=== PATIENT | male | born 1980 | race Caucasian/White ===

== ENCOUNTER → 2016-09-03 | Outpatient (CLI) | payer OTHER ==
[~2016-09-03] MED LIST: BUSP15TA70 PO; CHLO1TAB15 PO; GABA1CAP5 PO; METH10CO PO; VENL25TA2 PO
[2016-09-03 16:44] LABS: SODIUM 139 mmol/L (136-145)
[2016-09-03 16:49] LABS: BLOOD UREA NITROGEN 11 mg/dl (7-18); BUN/CREATININE RATIO 10.3 (10-20); CALCIUM 9.3 mg/dl (8.5-10.1); CARBON DIOXIDE 23 mmol/L (21-32); CHLORIDE 102 mmol/L (98-107); GLUCOSE 100 mg/dl (70-99)
== END | disposition home or self-care (01) ==
LOC: C.LABBFT 11:59
PROVIDERS: ATTEND Physician Assistant Medical
DX: R82.90 Unspecified abnormal findings in urine (principal)

== ENCOUNTER → 2016-09-06 | Outpatient (CLI) | payer OTHER ==
[2016-09-06 17:32] LABS: MANUAL MICROSCOPIC REQUIRED? NO; REVIEW REQ? NO; URINE APPEARANCE CLEAR (CLEAR); URINE COLOR DK YELLOW; URINE NITRITE NEG (NEG); URINE SPECIFIC GRAVITY 1.032 (1.000-1.030); UROBILINOGEN NEG (NEG); ZZUR CULT IF INDIC CLEAN CATCH NO
[2016-09-06 17:37] LABS: URINE BILIRUBIN NEG (NEG)
== END | disposition home or self-care (01) ==
LOC: C.LABBFT 11:34
PROVIDERS: ATTEND Physician Assistant Medical
DX: R82.90 Unspecified abnormal findings in urine (principal)

== ENCOUNTER → 2017-02-01 | Outpatient (CLI) | payer OTHER | END | disposition home or self-care (01) | LOC: C.PATHSPEC 17:12 | PROVIDERS: ATTEND Urology | DX: Z30.2 Encounter for sterilization (principal) ==

== ENCOUNTER 2024-03-02 00:29 | Inpatient (IN) ==
[2024-03-02 01:15] LABS: Appearance Urine Clear (Clear); Bacteria Urine Automated None Seen (None Seen); Bilirubin Urine Negative (Negative); Blood Urine Trace (Negative); Cast Urine Automated 0-2 /lpf (0-2); Color Urine Yellow; Epithelial Cell Urine Auto 0-2 /hpf (0-2); Glucose Urine UA Negative (Negative); Ketones Urine Negative (Negative); Leukocyte Esterase Urine Negative (Negative); Nitrite Urine Negative (Negative); Protein Urine Negative (Negative); RBC Urine Automated 0-2 /hpf (0-2); Specific Gravity Urine 1.007 (1.000-1.030); Urobilinogen Urine Negative (Negative); WBC Urine Automated 0-5 /hpf (0-5)
[2024-03-02 01:19] LABS: Basophils # (auto) 0.03 K/uL (0.00-0.20); Basophils % (auto) 0.3 %; Eosinophils # (auto) 0.02 K/uL (0.00-0.50); Eosinophils % (auto) 0.2 %; Hematocrit (blood only) 40.7 % (42.0-52.0); Hemoglobin 14.1 g/dl (14.0-18.0); Immature Granulocytes # (auto) 0.02 K/uL (0.01-0.20); Immature Granulocytes % (auto) 0.2 %; Lymphocytes # (auto) 1.54 K/uL (1.20-3.40); Lymphocytes % (auto) 16.4 %; Mean Corpuscular Hgb Conc 34.6 g/dL (32.0-36.0); Mean Corpuscular Volume 92.3 fL (80.0-100.0); Mean Platelet Volume 9.7 fL (9.4-12.4); Monocytes # (auto) 0.71 K/uL (0.11-0.59); Monocytes % (auto) 7.6 %; Neutrophils # (auto) 7.08 K/uL (1.40-6.50); Neutrophils % (auto) 75.3 %; Platelet Count 249 K/uL (130-400); RDW Coefficient of Variation 12.2 % (11.5-14.5); RDW Standard Deviation 41.3 fL (36.4-46.3); Red Blood Count 4.41 M/uL (4.70-6.10)
--- NOTE | 2024-03-02 01:30 | XRay Report ---
EXAM: XR chest 1V portable CLINICAL HISTORY: CHEST PAIN. TECHNIQUE: X-ray image of the chest is obtained in AP portable projection. COMPARISON: No prior studies are available for comparison. FINDINGS: Pulmonary Parenchyma: Chest leads are seen Lungs are clear bilaterally. No evidence of consolidation, collapse, or focal opacities. No pulmonary nodules are identified. Bilateral pleural thickening seen No evidence of pleural effusion. Heart and Mediastinum: Heart size and shape are normal. No mediastinal widening or masses. No hilar or mediastinal lymphadenopathy. Both jonelle appear prominent likely due to vascular congestion Bony Thorax: Bony thorax appears intact without fractures or deformities. Soft Tissues: Soft tissues overlying the chest wall are unremarkable. IMPRESSION: 1. Prominent both jonelle likely due to vascular congestion. Follow-up is advised 2. Bilateral apical pleural thickening 3. No evidence of active pulmonary infection Electronically signed by Ashlee Marti 03-02-2024 01:29 AM
[2024-03-02 01:33] LABS: Amphetamines+Metham, Urine Neg (Neg); Barbiturates, Urine Neg (Neg); Benzodiazepine, Urine Neg (Neg); Cocaine, Urine Neg (Neg); Fentanyl, Urine Neg (Neg); MDMA (Ecstacy), Urine Neg (Neg); Marijuana, Urine Pos (Neg); Methadone, Urine Pos (Neg); Opiate, Urine Neg (Neg); Phencyclidine, Urine Neg (Neg)
[2024-03-02 01:35] LABS: Albumin Globulin Ratio 1.2 (0.9-2); Albumin Level 3.9 gm/dl (3.4-5.0); BUN Creatinine Ratio 9.7 (10-20); Bilirubin,Total 0.4 mg/dl (0.2-1.0); Creatinine Clr Calc Pharmacy 95.7 ml/min; Globulin 3.2 gm/dl (2.5-4.0); Potassium 3.7 mmol/L (3.5-5.1); Total Protein 7.1 gm/dl (6.0-8.3)
[2024-03-02 01:50] LABS: Troponin I High Sensitivity 103.6 pg/ml (0-20)
[2024-03-02 02:02] LABS: Adenovirus PCR Not Detected (NotDetected); Bordetella parapertussis PCR Not Detected (NotDetected); Bordetella pertussis PCR Not Detected (NotDetected); Chlamydia pneumoniae PCR Not Detected (NotDetected); Coronavirus 229E PCR Not Detected (NotDetected); Coronavirus CoV-2 (COVID19)PCR Not Detected (NotDetected); Coronavirus HKU1 PCR Not Detected (NotDetected); Coronavirus NL63 PCR Not Detected (NotDetected); Coronavirus OC43PCR Not Detected (NotDetected); Human Metapneumovirus PCR Not Detected (NotDetected); Influenza A PCR Not Detected (NotDetected); Influenza B PCR Not Detected (NotDetected); Mycoplasma pneumoniae PCR Not Detected (NotDetected); Parainfluenza Virus 1 PCR Not Detected (NotDetected); Parainfluenza Virus 2 PCR Not Detected (NotDetected); Parainfluenza Virus 3 PCR Not Detected (NotDetected); Parainfluenza Virus 4 PCR Not Detected (NotDetected); Respiratory Syncytial VirusPCR Not Detected (NotDetected); Rhinovirus/Enterovirus PCR Not Detected (NotDetected)
[2024-03-02] MEDS: MAGNESIUM SULFATE 1GM / D5W BAG IV ONE (02:10)
[2024-03-02] MEDS: POTASSIUM CHLORIDE 10 MEQ / 100ML WTR IV ONE (02:16)
[2024-03-02] MEDS: MAGNESIUM SULFATE / D5W 1 GM/100 ML BAG IV STA (02:24)
[2024-03-02] MEDS: NITROGLYCERIN 2% OINTMENT 30GM TUBE EXT ONE (02:24)
[2024-03-02] MEDS: POTASSIUM CHLORIDE / WTR 10 MEQ/100 ML PLCT IV ONE (02:24)
--- NOTE | 2024-03-02 02:24 | Emergency Department Note ---
History of Present Illness General Chief complaint: Chest Pain Stated complaint: Chest Pain Time Seen by Provider: 03/02/24 00:31 History of Present Illness Maximum Pain Intensity: 6 This is a 43-year-old male presenting to the emergency department for evaluation of chest pain symptoms that began this evening around midnight. Patient has had chest pain symptoms off and on for the past 12 months and has visited several other local hospitals without diagnosis. 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 Patient reportedly has been clean for the past 5 months. Patient did take 324 mg of aspirin prior to contacting EMS, and he states that initially this seemed to have helped his symptoms. Upon arrival to the ER he continues to rate his discomfort a 6/10. The pain is midsternal and radiates to the left side of his chest. No lightheadedness or dizziness. No difficulty breathing. Home Medications Medication Instructions Recorded Confirmed Type Medical marijuana inhalation 03/30/22 12/20/23 History methadone 10 mg/mL oral 90 mg PO DAILY 03/30/22 12/20/23 History concentrate (Methadone Intensol) gabapentin 800 mg tablet 800 mg PO TID #90 tabs 03/22/23 12/20/23 Rx atenolol 25 mg tablet 25 mg PO DAILY #90 tabs 04/04/23 12/20/23 Rx pravastatin 20 mg tablet 20 mg PO DAILY #90 tabs 06/20/23 12/20/23 Rx lisinopril 10 mg tablet 10 mg PO DAILY #90 tabs 08/25/23 12/20/23 Rx omeprazole 20 mg capsule,delayed 20 mg PO DAILY #90 caps 12/14/23 12/20/23 Rx release Allergies Allergy/AdvReac Type Severity Reaction Status Date / Time atorvastatin AdvReac Mild Unverified 12/20/23 08:04 Past Med/Surg History Problem List (Updated 03/02/24 @ 05:55 by Chase Goldsmith MD) Cardiac arrest Intravenous drug abuse in remission Admitted to intensive care unit CAD (coronary artery disease) ACS (acute coronary syndrome) Current every day vaping HLD (hyperlipidemia) GERD (gastroesophageal reflux disease) Depression (Acute) HTN (hypertension) Medical History Vitamin D deficiency Intravenous drug abuse in remission Murmur Radial artery occlusion, right Solitary pulmonary nodule Phantom limb pain Vitamin deficiency Septic olecranon bursitis of left elbow Abscess of tendon sheath of left forearm Surgical History 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) Status post open reduction and internal fixation (ORIF) of fracture L femur Family History Father Lung cancer Mother Hypertension Denies family history of Ovarian cancer Prostate cancer Myocardial infarction Breast cancer Colorectal cancer Social History Smoking Status: Current every day smoker Tobacco Type: E-cigarettes / Vaping Age Started Using Tobacco: 14; packs per day: 1; Cigarettes Per Day: currently vaping; Second Hand Exposure: Yes; Do You Dip or Chew Tobacco: No; Hx Alcohol Use: No Hx Substance Use: Yes (medical marijuana card) Prescribed Medications: Marijuana Last Used Substance: Unknown Preferred Language: Russian Communication Ability: Effective Visual Impairment: No Limitations Hearing Ability: Normal Endoscopy Registered Nurse Required: No Beliefs That Will Affect Care: None marital status: Single Current Living Situation: Family Current Living Situation Comment: lives with sister and brother current occupational status: disabled current occupation: on [employer] How many Children do You have: 0 Feels Safe at Home: Yes Childhood Exposure to Second-Hand Smoke: Yes Diet: regular Diet Comment: regular caffeine: Yes (rarely) during the past year weight has: increased > 10 lbs Dental Care, Regularly: No Physical Activity Frequency: 1-2 Times per Week Physical Activity Frequency Comment: walking Seatbelt Use: sometimes Sunscreen Use: Yes Assistive Devices: Denture - Upper and Glasses Review of Systems A total of 10 systems reviewed and were otherwise negative Physical Exam Vital Signs Vital Signs - 24 hr 03/02/24 00:17 03/02/24 00:17 03/02/24 00:34 Temperature 36.7 C Temperature Source Oral Pulse Rate 75 Pulse Rate [Finger] Pulse Rate from SpO2 Sensor Pulse Rhythm Regular Pulse Strength Normal Respiratory Rate 14 Respiratory Effort / Characteristics Non-Labored Spontaneous Respiratory Depth Normal Respiratory Pattern Regular Blood Pressure 148/91 H Blood Pressure [Right Thigh] Blood Pressure Mean 110 Blood Pressure Mean [Right Thigh] Blood Pressure Position Sitting Pulse Oximetry 97 98 Oxygen Delivery Method Room Air Room Air Room Air Oxygen Flow Rate Sepsis Recent Fever Within 48 Hours No Sepsis New/Unexplained Change in Mental Status N/A Sepsis Action Taken by Nursing No Action Required 03/02/24 00:35 03/02/24 00:38 03/02/24 02:02 Temperature Temperature Source Pulse Rate 84 267 H Pulse Rate [Finger] Pulse Rate from SpO2 Sensor Pulse Rhythm Pulse Strength Respiratory Rate Respiratory Effort / Characteristics Respiratory Depth Respiratory Pattern Blood Pressure 148/91 H Blood Pressure [Right Thigh] Blood Pressure Mean 106 Blood Pressure Mean [Right Thigh] Blood Pressure Position Pulse Oximetry Oxygen Delivery Method Oxygen Flow Rate Sepsis Recent Fever Within 48 Hours Sepsis New/Unexplained Change in Mental Status Sepsis Action Taken by Nursing 03/02/24 02:03 03/02/24 02:05 03/02/24 02:11 Temperature Temperature Source Pulse Rate 267 H 77 92 H Pulse Rate [Finger] Pulse Rate from SpO2 Sensor Pulse Rhythm Pulse Strength Respiratory Rate 36 H Respiratory Effort / Characteristics Respiratory Depth Respiratory Pattern Blood Pressure 127/84 Blood Pressure [Right Thigh] Blood Pressure Mean 92 Blood Pressure Mean [Right Thigh] Blood Pressure Position Pulse Oximetry 87 L 100 Oxygen Delivery Method Non-rebreather Oxygen Flow Rate 15 Sepsis Recent Fever Within 48 Hours Sepsis New/Unexplained Change in Mental Status Sepsis Action Taken by Nursing 03/02/24 02:18 03/02/24 02:20 03/02/24 02:20 Temperature Temperature Source Pulse Rate 94 H Pulse Rate [Finger] Pulse Rate from SpO2 Sensor 95 H Pulse Rhythm Pulse Strength Respiratory Rate 12 Respiratory Effort / Characteristics Respiratory Depth Respiratory Pattern Blood Pressure 103/70 103/70 Blood Pressure [Right Thigh] Blood Pressure Mean 81 81 Blood Pressure Mean [Right Thigh] Blood Pressure Position Pulse Oximetry 100 Oxygen Delivery Method Oxygen Flow Rate Sepsis Recent Fever Within 48 Hours Sepsis New/Unexplained Change in Mental Status Sepsis Action Taken by Nursing 03/02/24 02:20 03/02/24 02:21 03/02/24 02:27 Temperature Temperature Source Pulse Rate 97 H 95 H Pulse Rate [Finger] Pulse Rate from SpO2 Sensor 98 H 94 H Pulse Rhythm Pulse Strength Respiratory Rate 16 13 Respiratory Effort / Characteristics Respiratory Depth Respiratory Pattern Blood Pressure 103/70 Blood Pressure [Right Thigh] Blood Pressure Mean 81 Blood Pressure Mean [Right Thigh] Blood Pressure Position Pulse Oximetry 100 100 Oxygen Delivery Method Oxygen Flow Rate Sepsis Recent Fever Within 48 Hours Sepsis New/Unexplained Change in Mental Status Sepsis Action Taken by Nursing 03/02/24 02:30 03/02/24 02:30 03/02/24 02:30 Temperature Temperature Source Pulse Rate Pulse Rate [Finger] Pulse Rate from SpO2 Sensor Pulse Rhythm Pulse Strength Respiratory Rate Respiratory Effort / Characteristics Respiratory Depth Respiratory Pattern Blood Pressure 115/77 115/77 115/77 Blood Pressure [Right Thigh] Blood Pressure Mean 89 89 89 Blood Pressure Mean [Right Thigh] Blood Pressure Position Pulse Oximetry Oxygen Delivery Method Oxygen Flow Rate Sepsis Recent Fever Within 48 Hours Sepsis New/Unexplained Change in Mental Status Sepsis Action Taken by Nursing 03/02/24 02:31 Temperature Temperature Source Pulse Rate Pulse Rate [Finger] 89 Pulse Rate from SpO2 Sensor Pulse Rhythm Pulse Strength Respiratory Rate 20 Respiratory Effort / Characteristics Non-Labored Spontaneous Respiratory Depth Normal Respiratory Pattern Blood Pressure Blood Pressure [Right Thigh] 115/77 Blood Pressure Mean Blood Pressure Mean [Right Thigh] 89 Blood Pressure Position Pulse Oximetry 98 Oxygen Delivery Method Non-rebreather Oxygen Flow Rate 13 Sepsis Recent Fever Within 48 Hours Sepsis New/Unexplained Change in Mental Status Sepsis Action Taken by Nursing VITALS: Vitals are noted on the nurse's note and reviewed by myself. Vital signs stable. GENERAL: Chronically ill-appearing white male in no acute distress HEAD: Normocephalic atraumatic. NECK: Supple without nuchal rigidity. No lymphadenopathy. No thyromegaly. Cervical spine is nontender. HEART: Regular rate and rhythm without murmurs gallops or rubs. LUNGS: Clear to auscultation bilaterally without wheezes, rales or rhonchi. No retractions or accessory muscle use. ABDOMEN: Positive normal bowel sounds x 4. Soft, nontender, without masses or organomegaly. No guarding or rebound tenderness. MUSCULOSKELETAL: No muscle atrophy, erythema, or edema noted. Full range of motion in all extremities. NEURO: Patient was alert and oriented to person place and time. CN II through XII grossly intact. Course Administered Medications Amiodarone HCl/Dextrose (Nexterone / D5w) 360 mg in 200 mls @ 33.333 mls/hr IV ONE ONE Stop: 03/02/24 08:39 Last Admin: 03/02/24 03:50 Dose: 1 mg/min, 33.3 mls/hr Documented By: BPY Co-signed By: CMB Discontinued Medications Fentanyl Citrate (Fentanyl Citrate Pf 100 Mcg/2 Ml Vial) Confirm Administered Dose 100 mcg .ROUTE .STK-MED ONE Stop: 03/02/24 02:43 Last Increment: 03/02/24 04:23 Dose: 25 mcg Documented By: SU Heparin Sodium (Porcine) (Heparin Sod (Porcine) 1000 Unit/Ml) 5,000 units IV NOW ONE Stop: 03/02/24 02:45 Last Admin: 03/02/24 02:51 Dose: 3,000 units Documented By: NASREEN Co-signed By: LEONA Heparin Sodium (Porcine) (Heparin (Porcine) 1000 Unit/Ml 10 Ml (Pin Ticket Machine Operator Use Only)) Confirm Administered Dose 10,000 units .ROUTE .STK-MED ONE Stop: 03/02/24 02:43 Last Admin: 03/02/24 04:23 Dose: 5,000 units Documented By: SU Heparin Sodium/Dextrose (Heparin Iv Adult Wt-Based Standard W/ Initial Bolus Protocol) 1 each IV NOW STA; Protocol Stop: 03/02/24 02:30 Last Admin: 03/02/24 04:25 Dose: 1 each Documented By: SU Heparin Sodium/Sodium Chloride (Heparin In Nss Infusion 1000 Unit/500 Ml (2 U/Ml) Bag) Confirm Administered Dose 3,000 units IV .STK-MED ONE Stop: 03/02/24 02:43 Last Admin: 03/02/24 03:51 Dose: 3,000 units Documented By: SU Potassium Chloride (K Kenny / Wtr) 10 meq in 100 mls @ 100 mls/hr IV ONE ONE Stop: 03/02/24 03:14 Last Admin: 03/02/24 02:24 Dose: Not Given Documented By: LEONA Magnesium Sulfate/Dextrose (Magnesium Sulfate / D5w) 1 gm in 100 mls @ 100 mls/hr IV NOW STA Stop: 03/02/24 03:15 Last Admin: 03/02/24 02:24 Dose: Not Given Documented By: LEONA Heparin Sodium/Dextrose (Heparin Sodium/Dextrose) 25,000 units in 500 mls @ 23 mls/hr IV .[id number] [facility]; Protocol Stop: 04/01/24 02:44 Last Admin: 03/02/24 02:52 Dose: 1,150 units/hr, 23 mls/hr Documented By: NASREEN Co-signed By: LEONA N/A (0.2 Micron Filter Set 17" W/Clave,Non-Dehp) 0 mls @ 0.333 mls/hr IV ONE STA Stop: 03/02/24 02:30 Last Admin: 03/02/24 03:49 Dose: 0.333 mls/hr Documented By: SU Amiodarone HCl/Dextrose (Nexterone / D5w) 150 mg in 100 mls @ 600 mls/hr IV NOW STA Stop: 03/02/24 02:38 Last Infusion: 03/02/24 05:34 Dose: Infused Documented By: [id number] Co-signed By: ESTEVAN Admin: 03/02/24 03:50 Dose: 600 mls/hr Documented By: SU Co-signed By: GIANNI Ioversol (Optiray 350) Confirm Administered Dose 1 ml .ROUTE .STK-MED ONE Stop: 03/02/24 02:44 Last Admin: 03/02/24 05:35 Dose: Not Given Documented By: [id number] Magnesium Sulfate/Dextrose (Magnesium Sulfate 1gm / D5w Bag) Confirm Administered Dose 2 gm IV .STK-MED ONE Stop: 03/02/24 02:07 Last Admin: 03/02/24 02:10 Dose: 2 gm Documented By: LEONA Midazolam HCl (Midazolam Hcl 1 Mg/Ml 2ml Vial) Confirm Administered Dose 2 mg .ROUTE .STK-MED ONE Stop: 03/02/24 02:43 Last Increment: 03/02/24 04:24 Dose: 1 mg Documented By: SU Nicardipine HCl (Nicardipine 2,000 Mcg/20 Ml Syr) Confirm Administered Dose 2,000 mcg .ROUTE .STK-MED ONE Stop: 03/02/24 02:43 Last Admin: 03/02/24 03:51 Dose: 2,000 mcg Documented By: SANGEETA Nitroglycerin (Nitroglycerin 2% Ointment 30gm Tube) 1 inch EXT NOW ONE Stop: 03/02/24 02:01 Last Admin: 03/02/24 02:24 Dose: Not Given Documented By: LEONA Nitroglycerin/Dextrose (Nitroglycerin/D5w 100mcg/Ml 20ml Syr) Confirm Administered Dose 2,000 mcg .ROUTE .STK-MED ONE Stop: 03/02/24 02:43 Last Admin: 03/02/24 03:51 Dose: 2,000 mcg Documented By: SANGEETA Norepinephrine Bitartrate (Norepinephrine/D5w 4 Mg/250 Ml) Confirm Administered Dose 4 mg IV .STK-MED ONE Stop: 03/02/24 03:19 Last Admin: 03/02/24 04:25 Dose: 4 mg Documented By: SU Co-signed By: GIANNI Ondansetron HCl (Ondansetron Inj 2 Mg/Ml 2 Ml Vial) Confirm Administered Dose 4 mg .ROUTE .STK-MED ONE Stop: 03/02/24 02:53 Last Admin: 03/02/24 04:24 Dose: Not Given Documented By: SU Potassium Chloride (Potassium Chloride 10 Meq / 100ml Wtr) Confirm Administered Dose 10 meq IV .STK-MED ONE Stop: 03/02/24 02:15 Last Admin: 03/02/24 02:16 Dose: 10 meq Documented By: LEONA Ticagrelor (Ticagrelor 90 Mg Tab) Confirm Administered Dose 180 mg .ROUTE .STK- MED ONE Stop: 03/02/24 04:19 Last Admin: 03/02/24 04:23 Dose: 180 mg Documented By: SU Critical Care Time I have personally spent greater than 44 minutes of critical care time in the direct management of this patient. This includes bedside care, interpretation of diagnostic studies, and testing, discussion with consultants, patient, and family members, and other required patient management activities. This 44 minutes is in excess of all separately billable procedures. Medical Decision Making Differential Diagnosis Differential diagnosis includes, but is not limited to: Myocardial infarction, dysrhythmia, pericarditis, pneumothorax, aortic aneurysm/dissection, DVT/PE, anxiety, GERD, PUD, electrolyte imbalance, thyroid disorder, pneumonia, bronchitis, pancreatitis, and others Laboratory Data 03/02/24 00:59 03/02/24 00:59 Lab Results 03/02/24 03/02/24 03/02/24 Range/Units 00:54 00:59 01:03 WBC 9.40 (4.8-10.8) K/ul RBC 4.41 L (4.70-6.10) M/uL Hgb 14.1 (14.0-18.0) g/dl Hct 40.7 L (42.0-52.0) % MCV 92.3 (80.0-100.0) fL MCH 32.0 (25.0-34.0) pg MCHC 34.6 (32.0-36.0) g/dL RDW Std Deviation 41.3 (36.4-46.3) fL RDW Coeff of Keyla 12.2 (11.5-14.5) % Plt Count 249 (130-400) K/uL MPV 9.7 (9.4-12.4) fL Immature Gran % (Auto) 0.2 % Neut % (Auto) 75.3 % Lymph % (Auto) 16.4 % Bandera % (Auto) 7.6 % Eos % (Auto) 0.2 % Baso % (Auto) 0.3 % Neut # (Auto) 7.08 H (1.40-6.50) K/uL Lymph # (Auto) 1.54 (1.20-3.40) K/uL Bandera # (Auto) 0.71 H (0.11-0.59) K/uL Eos # (Auto) 0.02 (0.00-0.50) K/uL Baso # (Auto) 0.03 (0.00-0.20) K/uL Immature Gran # (Auto) 0.02 (0.01-0.20) K/uL PT 10.5 (9.0-12.0) Seconds INR 1.0 (0.9-1.1) APTT 28 (21-31) Seconds PTT Ratio 1.0 Sodium 138 (136-145) mmol/L Potassium 3.7 (3.5-5.1) mmol/L Chloride 100 (98-107) mmol/L Carbon Dioxide 31 (21-32) mmol/L Anion Gap 7 (3-11) BUN 9 (6-23) mg/dl Creatinine 0.93 (0.6-1.4) mg/dl Est Cr Clr Drug Dosing 95.7 ml/min eGFR 105.79 BUN/Creatinine Ratio 9.7 L (10-20) Glucose 120 H (70-99(Fasting)) mg/dl Calcium 9.0 (8.6-10.3) mg/dl Magnesium 1.8 (1.7-2.4) mg/dl Total Bilirubin 0.4 (0.2-1.0) mg/dl AST 27 (13-39) U/L ALT 30 (7-52) U/L Alkaline Phosphatase 113 H (34-104) U/L Troponin I High Sens 103.6 H* (0-20) pg/ml Total Protein 7.1 (6.0-8.3) gm/dl Albumin 3.9 (3.4-5.0) gm/dl Globulin 3.2 (2.5-4.0) gm/dl Albumin/Globulin Ratio 1.2 (0.9-2) Lipase 13 (11-82) U/L Urine Color Yellow Urine Appearance Clear (Clear) Urine pH 6.0 (4.5-7.5) Ur Specific [place] 1.007 (1.000-1.030) Urine Protein Negative (Negative) Urine Glucose (UA) Negative (Negative) Urine Ketones Negative (Negative) Urine Blood Trace H (Negative) Urine Nitrite Negative (Negative) Urine Bilirubin Negative (Negative) Urine Urobilinogen Negative (Negative) Ur Leukocyte Esterase Negative (Negative) Urine WBC (Auto) 0-5 (0-5) /hpf Urine RBC (Auto) 0-2 (0-2) /hpf U Hyaline Cast (Auto) 0-2 (0-2) /lpf U Epithel Cells (Auto) 0-2 (0-2) /hpf Urine Bacteria (Auto) None Seen (None Seen) Urine Opiates Screen Neg (Neg) Ur Methadone, Qual Pos H (Neg) Urine Fentanyl Screen Neg (Neg) Urine Barbiturates Neg (Neg) Ur Phencyclidine (PCP) Neg (Neg) U Amphetamin/Meth Scrn Neg (Neg) MDMA (Ecstasy) Screen Neg (Neg) U Benzodiazepines Scrn Neg (Neg) Ur Cocaine Metabolite Neg (Neg) U Marijuana (THC) Screen Pos H (Neg) Adenovirus (PCR) Not Detected (NotDetected) B. pertussis DNA (PCR) Not Detected (NotDetected) B.parapertussis DNA PCR Not Detected (NotDetected) C. pneumoniae DNA (PCR) Not Detected (NotDetected) Coronavirus OC43 (PCR) Not Detected (NotDetected) Coronavirus HKU1 (PCR) Not Detected (NotDetected) Coronavirus 229E (PCR) Not Detected (NotDetected) SARS-CoV-2 (PCR) Not Detected (NotDetected) Coronavirus NL63 (PCR) Not Detected (NotDetected) Human Metapneumovir PCR Not Detected (NotDetected) Influenza Type A (PCR) Not Detected (NotDetected) Influenza Type B (PCR) Not Detected (NotDetected) M. pneumoniae (PCR) Not Detected (NotDetected) Parainfluenza 1 (PCR) Not Detected (NotDetected) Parainfluenza 2 (PCR) Not Detected (NotDetected) Parainfluenza 3 (PCR) Not Detected (NotDetected) Parainfluenza 4 (PCR) Not Detected (NotDetected) RSV (PCR) Not Detected (NotDetected) Entero/Rhino (PCR) Not Detected (NotDetected) 03/02/24 Range/Units 02:50 WBC (4.8-10.8) K/ul RBC (4.70-6.10) M/uL Hgb (14.0-18.0) g/dl Hct (42.0-52.0) % MCV (80.0-100.0) fL MCH (25.0-34.0) pg MCHC (32.0-36.0) g/dL RDW Std Deviation (36.4-46.3) fL RDW Coeff of Keyla (11.5-14.5) % Plt Count (130-400) K/uL MPV (9.4-12.4) fL Immature Gran % (Auto) % Neut % (Auto) % Lymph % (Auto) % Band[place] % (Auto) % Eos % (Auto) % Baso % (Auto) % Neut # (Auto) (1.40-6.50) K/uL Lymph # (Auto) (1.20-3.40) K/uL Band[place] # (Auto) (0.11-0.59) K/uL Eos # (Auto) (0.00-0.50) K/uL Baso # (Auto) (0.00-0.20) K/uL Immature Gran # (Auto) (0.01-0.20) K/uL PT (9.0-12.0) Seconds INR (0.9-1.1) APTT (21-31) Seconds PTT Ratio Sodium (136-145) mmol/L Potassium (3.5-5.1) mmol/L Chloride (98-107) mmol/L Carbon Dioxide (21-32) mmol/L Anion Gap (3-11) BUN (6-23) mg/dl Creatinine (0.6-1.4) mg/dl Est Cr Clr Drug Dosing ml/min eGFR BUN/Creatinine Ratio (10-20) Glucose (70-99(Fasting)) mg/dl Calcium (8.6-10.3) mg/dl Magnesium (1.7-2.4) mg/dl Total Bilirubin (0.2-1.0) mg/dl AST (13-39) U/L ALT (7-52) U/L Alkaline Phosphatase (34-104) U/L Troponin I High Sens 306.4 H* D (0-20) pg/ml Total Protein (6.0-8.3) gm/dl Albumin (3.4-5.0) gm/dl Globulin (2.5-4.0) gm/dl Albumin/Globulin Ratio (0.9-2) Lipase (11-82) U/L Urine Color Urine Appearance (Clear) Urine pH (4.5-7.5) Ur Specific [place] (1.000-1.030) Urine Protein (Negative) Urine Glucose (UA) (Negative) Urine Ketones (Negative) Urine Blood (Negative) Urine Nitrite (Negative) Urine Bilirubin (Negative) Urine Urobilinogen (Negative) Ur Leukocyte Esterase (Negative) Urine WBC (Auto) (0-5) /hpf Urine RBC (Auto) (0-2) /hpf U Hyaline Cast (Auto) (0-2) /lpf U Epithel Cells (Auto) (0-2) /hpf Urine Bacteria (Auto) (None Seen) Urine Opiates Screen (Neg) Ur Methadone, Qual (Neg) Urine Fentanyl Screen (Neg) Urine Barbiturates (Neg) Ur Phencyclidine (PCP) (Neg) U Amphetamin/Meth Scrn (Neg) MDMA (Ecstasy) Screen (Neg) U Benzodiazepines Scrn (Neg) Ur Cocaine Metabolite (Neg) U Marijuana (THC) Screen (Neg) Adenovirus (PCR) (NotDetected) B. pertussis DNA (PCR) (NotDetected) B.parapertussis DNA PCR (NotDetected) C. pneumoniae DNA (PCR) (NotDetected) Coronavirus OC43 (PCR) (NotDetected) Coronavirus HKU1 (PCR) (NotDetected) Coronavirus 229E (PCR) (NotDetected) SARS-CoV-2 (PCR) (NotDetected) Coronavirus NL63 (PCR) (NotDetected) Human Metapneumovir PCR (NotDetected) Influenza Type A (PCR) (NotDetected) Influenza Type B (PCR) (NotDetected) M. pneumoniae (PCR) (NotDetected) Parainfluenza 1 (PCR) (NotDetected) Parainfluenza 2 (PCR) (NotDetected) Parainfluenza 3 (PCR) (NotDetected) Parainfluenza 4 (PCR) (NotDetected) RSV (PCR) (NotDetected) Entero/Rhino (PCR) (NotDetected) Imaging Data Radiologist's Impression: Chest X-Ray 03/02/24 00:34 EXAM: XR chest 1V portable CLINICAL HISTORY: CHEST PAIN. TECHNIQUE: X-ray image of the chest is obtained in AP portable projection. COMPARISON: No prior studies are available for comparison. FINDINGS: Pulmonary Parenchyma: Chest leads are seen Lungs are clear bilaterally. No evidence of consolidation, collapse, or focal opacities. No pulmonary nodules are identified. Bilateral pleural thickening seen No evidence of pleural effusion. Heart and Mediastinum: Heart size and shape are normal. No mediastinal widening or masses. No hilar or mediastinal lymphadenopathy. Both jonelle appear prominent likely due to vascular congestion Bony Thorax: Bony thorax appears intact without fractures or deformities. Soft Tissues: Soft tissues overlying the chest wall are unremarkable. IMPRESSION: 1. Prominent both jonelle likely due to vascular congestion. Follow-up is advised 2. Bilateral apical pleural thickening 3. No evidence of active pulmonary infection Electronically signed by Ashlee Marti 03-02-2024 01:29 AM MDM Narrative Physical exam and history were performed. Nursing notes, EMR, and Medication List were personally reviewed. No social concerns were identified as barriers to patients care. Patient appears to have chest pain symptoms bring him to the ER. Initial EKG was performed and was normal sinus rhythm at [address] depression and nonspecific T wave abnormality. IV access was established and labs were obtained. An order was placed for continuous cardiac monitoring. The monitor shows a rate of 70 with normal sinus rhythm. Patient's blood work is as above and was reviewed. Patient does not have a significantly elevated white blood cell count, gross anemia, bandemia, or significant electrolyte imbalance. Transaminases are not diagnostic. Initial troponin is elevated over 100. Case was discussed with my attending physician, and escalation of care is felt to be necessary for the patient. After receipt of the elevated troponin I did reevaluate the patient, and second EKG was performed. Second EKG appears to show evolving changes likely in the inferior leads which was concerning. Within a few minutes of the second EKG the patient went into ventricular fibrillation. This was identified almost immediately and patient was unresponsive in the bed. CODE BLUE was called and staff was responsive and rapid at bedside. Dr. Ritchie led the code and ultimately patient was defibrillated and high-quality CPR was started. Patient did have return of circulation, and did regain consciousness. 3rd EKG was performed and continues to show dynamic EKG changes. Case was discussed with the on-call community health promoter, Dr. Meléndez, as well as the on-call hospitalist Dr. Goldsmith. After review of the patient's symptoms and course a heart alert was recommended, and Dr. Blas did arrive at bedside. Dr. Blas will take patient to the Pin Ticket Machine Operator for further management. Please see the specialist dictation for further patient course, plan, and patient disposition. The chart was completed utilizing [employer] Voice Recognition Software. Grammatical errors, random word insertions, pronoun errors, and incomplete sentences are an occasional consequence of this system due to software limitations, ambient noise, and hardware issues. Any formal questions or concerns about the content, text, or information contained within the body of this dictation should be directly addressed to the provider for clarification. Impression & Plan Cardiac arrest with successful resuscitation, ACS (acute coronary syndrome), Chest pain Discharge Plan Visit Data Chief Complaint: Chest Pain Stated Complaint: Chest Pain ED Provider: Deborah Ritchie ED Midlevel Provider: Blake Jaime Discharge Problem: Cardiac arrest with successful resuscitation, ACS (acute coronary syndrome), Chest pain Patient Disposition: Admitted As Inpatient Discharge Instructions Interventions: ED Discharge Assessment Last Done: 03/02/24 02:49
[2024-03-02] MEDS ORDERED: AMIODARONE IV BOLUS & DRIP IV STA (02:29)
[2024-03-02] MEDS ORDERED: STAT IV Infusion **Titration per Protocol STA (02:29)
[2024-03-02 02:46] LABS: Magnesium 1.8 mg/dl (1.7-2.4); Partial Thromboplastin Time 28 Seconds (21-31); Prothrombin Time 10.5 Seconds (9.0-12.0)
[2024-03-02] MEDS: HEPARIN SOD (PORCINE) 1000 UNIT/ML IV ONE (02:51)
[2024-03-02] MEDS: HEPARIN SODIUM/DEXTROSE 25,000 UNITS/500 ML BAG IV SCH (02:52)
--- NOTE | 2024-03-02 03:04 | Pre Anesthesia Assessment ---
Date of Service March 02, 2024 Pre Sedation Assessment Vital Signs Temp Pulse Pulse Resp BP BP Pulse Ox 03/02/24 02:31 89 20 115/77 98 03/02/24 02:30 115/77 03/02/24 02:30 115/77 03/02/24 02:30 115/77 03/02/24 02:27 95 H 13 100 03/02/24 02:21 97 H 16 100 03/02/24 02:20 103/70 03/02/24 02:20 103/70 03/02/24 02:20 103/70 03/02/24 02:18 94 H 12 100 03/02/24 02:11 92 H 127/84 100 03/02/24 02:05 77 03/02/24 02:03 267 H 36 H 87 L 03/02/24 02:02 267 H 03/02/24 00:38 84 03/02/24 00:35 148/91 H 03/02/24 00:34 98 03/02/24 00:17 03/02/24 00:17 98.1 F 75 14 148/91 H 97 O2 Del Method O2 Flow Rate 03/02/24 02:31 Non-rebreather 13 03/02/24 02:30 03/02/24 02:30 03/02/24 02:30 03/02/24 02:27 03/02/24 02:21 03/02/24 02:20 03/02/24 02:20 03/02/24 02:20 03/02/24 02:18 03/02/24 02:11 Non-rebreather 15 03/02/24 02:05 03/02/24 02:03 03/02/24 02:02 03/02/24 00:38 03/02/24 00:35 03/02/24 00:34 Room Air 03/02/24 00:17 Room Air 03/02/24 00:17 Room Air Cardiovascular + regular rate Respiratory + respiratory effort normal Pre-Sedation Airway Assessment Smoking Status: Current every day smoker Thyromental Distance: < 3.5 Finger Breadths Oral Cavity: + Dental Abnormalities Mallampati Class: III ASA: ASA3 Procedure Planning Contraindications for Sedation: none Current Medications Reviewed: Yes Notes The planned sedation has been discussed with the patient. Informed Consent was obtained. I have identified the patient, determined the appropriateness of s edation and have assessed the patient immediately prior to the procedure. All medicine(s) and interventions are by my order.
--- NOTE | 2024-03-02 03:06 | History & Physical Report ---
Date of Service March 02, 2024 Assessment & Plan (1) CAD (coronary artery disease): (2) Admitted to intensive care unit: (3) HLD (hyperlipidemia): (4) GERD (gastroesophageal reflux disease): (5) Depression: (6) HTN (hypertension): (7) Intravenous drug abuse in remission: (8) Cardiac arrest: Plan Cardiac arrest- Initially presented with chest pain, with elevated troponin of 103.6, Patient rapidly was found to be in ventricular tachycardia/likely torsades, received empiric magnesium IV, and was shocked with 200 J unsynchronized. Patient converted to normal sinus rhythm after about 1 minute of chest compressions. The patient was started on intravenous heparin bolus/drip, and amiodarone bolus/drip. He was taken emergently to the cardiac Furnace Operator as a heart alert 98% ostial LAD underwent successful stent placement, and a 70% ostial left circumflex underwent successful stent placement by Dr. Blas. The patient is admitted to the ICU for ongoing medical treatment Follow-up echocardiogram and serial troponins Change beta-jonatan from atenolol 25 mg daily to metoprolol tartrate 12.5 mg p.o. twice daily Continue aspirin 81 mg daily-received 324 mg from the ED Hold lisinopril to allow use of beta-jonatan Adjustment of all cardiac medications will be made per Dr. Blas going forward Consult family day care provider Dr. Raj Blas Consult patternmaker pressure cast Dr. Ramirez Hyperlipidemia- Change pravastatin 20 mg to rosuvastatin 20 mg high-dose statin Check a fasting lipid panel History of IV drug abuse- On maintenance methadone Have discussed with Lacie, who will verify dosing of methadone before being given in the morning Old medical marijuana GERD- Change omeprazole to pantoprazole History of Present Illness Chief Complaint: The patient presented to the emergency department with acute onset of chest pain. Upon arrival to the emergency department, the patient was found to be in ventricular tachycardia/torsades. Patient did receive defibrillation 20 J, chest compressions were initiated, ventilations were initiated. Patient at about 1 minute, began to breathe on his own, and began to wake up. At this point, chest compressions were stopped, and patient was found to be in normal sinus rhythm Primary Care Provider: Ailyn Perry DO The patient is a 43-year-old male with past medical history including current everyday vaping, hyperlipidemia, GERD, depression, hypertension, peripheral neuropathy, history of left upper lobe limb loss history of IVDA. The patient presented to the emergency department as noted above, underwent cardiac arrest as noted, and ROSC was obtained. Patient became alert, returned to normal sinus rhythm, and was then referred for evaluation for admission. Patient then became a heart alert, and was taken to the cardiac Furnace Operator urgently by Dr. Blas. He was found to have a 98% ostial LAD lesion, and a 70% ostial left circumflex lesion with placement of 2 stents Allergies Allergy/AdvReac Type Severity Reaction Status Date / Time atorvastatin AdvReac Mild Unverified 12/20/23 08:04 Home Medications Medication Instructions Recorded Confirmed Type Medical marijuana inhalation 03/30/22 12/20/23 History methadone 10 mg/mL oral 90 mg PO DAILY 03/30/22 12/20/23 History concentrate (Methadone Intensol) gabapentin 800 mg tablet 800 mg PO TID #90 tabs 03/22/23 12/20/23 Rx atenolol 25 mg tablet 25 mg PO DAILY #90 tabs 04/04/23 12/20/23 Rx pravastatin 20 mg tablet 20 mg PO DAILY #90 tabs 06/20/23 12/20/23 Rx lisinopril 10 mg tablet 10 mg PO DAILY #90 tabs 08/25/23 12/20/23 Rx omeprazole 20 mg capsule,delayed 20 mg PO DAILY #90 caps 12/14/23 12/20/23 Rx release Past Med/Surg History Problem List (Updated 03/02/24 @ 05:55 by Chase Goldsmith MD) Cardiac arrest Intravenous drug abuse in remission Admitted to intensive care unit CAD (coronary artery disease) ACS (acute coronary syndrome) Current every day vaping HLD (hyperlipidemia) GERD (gastroesophageal reflux disease) Depression (Acute) HTN (hypertension) Medical History Vitamin D deficiency Intravenous drug abuse in remission Murmur Radial artery occlusion, right Solitary pulmonary nodule Phantom limb pain Vitamin deficiency Septic olecranon bursitis of left elbow Abscess of tendon sheath of left forearm Surgical History 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) Status post open reduction and internal fixation (ORIF) of fracture L femur Family History Father Lung cancer Mother Hypertension Denies family history of Ovarian cancer Prostate cancer Myocardial infarction Breast cancer Colorectal cancer Social History Smoking Status: Current every day smoker Tobacco Type: E-cigarettes / Vaping Age Started Using Tobacco: 14; packs per day: 1; Cigarettes Per Day: currently vaping; Second Hand Exposure: Yes; Do You Dip or Chew Tobacco: No; Hx Alcohol Use: No Hx Substance Use: Yes (medical marijuana card) Prescribed Medications: Marijuana Last Used Substance: Unknown Preferred Language: Portuguese Communication Ability: Effective Visual Impairment: No Limitations Hearing Ability: Normal Rd Project Manager Required: No Beliefs That Will Affect Care: None marital status: Single Current Living Situation: Family Current Living Situation Comment: lives with sister and brother current occupational status: disabled current occupation: on [employer] How many Children do You have: 0 Feels Safe at Home: Yes Childhood Exposure to Second-Hand Smoke: Yes Diet: regular Diet Comment: regular caffeine: Yes (rarely) during the past year weight has: increased > 10 lbs Dental Care, Regularly: No Physical Activity Frequency: 1-2 Times per Week Physical Activity Frequency Comment: walking Seatbelt Use: sometimes Sunscreen Use: Yes Assistive Devices: Denture - Upper and Glasses Review of Systems Review of Systems: The patient denies chest pain, cough, lower extremity swelling, sore throat, fevers, chills, sweats, weight change, fatigue, nausea, vomiting, diarrhea , constipation, abdominal pain, pelvic pain, blood in urine or stool, dysuria, urinary frequency or urgency, lightheadedness, dizziness, headache, memory loss, loss of consciousness, rash, abnormal bruising or bleeding, imbalance, focal or generalized weakness, numbness or tingling in arms or legs, generalized arthralgias or myalgias, back or neck pain, or night sweats. The review of systems is otherwise negative other than for that already noted above, and at least 10 systems have been reviewed. Physical Exam Physical Exam: The patient is awake, alert and oriented 3, well developed and well nourished, normocephalic and atraumatic, lying in bed and in no acute distress. HEENT--PERRL, EOMI, mucous membranes and oropharynx dry. Neck--supple. No JVD. No bruits. Thyroid normal, trachea midline, no adenopathy. Heart--normal S1 and S2. No murmurs, rubs or gallops. Lungs--clear bilaterally, no respiratory distress, no accessory muscle use. Abdomen--normal bowel sounds and soft. Nontender. Nondistended, no hernias or masses, no organomegaly. Extremities--no cyanosis or clubbing. DIOGO amp Dermatologic--normal skin turgor, normal color, no abnormal lymph nodes, no rash. Neurologic--cranial nerves II through XII grossly intact. Rheumatologic--normal range of motion. Psychiatric--normal affect. Results & Data Results & Data Vital Signs (Past 12 Hours) Vital Signs Temp Pulse Pulse Resp BP BP Pulse Ox 03/02/24 02:31 89 20 115/77 98 03/02/24 02:30 115/77 03/02/24 02:30 115/77 03/02/24 02:30 115/77 03/02/24 02:27 95 H 13 100 03/02/24 02:21 97 H 16 100 03/02/24 02:20 103/70 03/02/24 02:20 103/70 03/02/24 02:20 103/70 03/02/24 02:18 94 H 12 100 03/02/24 02:11 92 H 127/84 100 03/02/24 02:05 77 03/02/24 02:03 267 H 36 H 87 L 03/02/24 02:02 267 H 03/02/24 00:38 84 03/02/24 00:35 148/91 H 03/02/24 00:34 98 03/02/24 00:17 03/02/24 00:17 36.7 C 75 14 148/91 H 97 O2 Del Method O2 Flow Rate 03/02/24 02:31 Non-rebreather 13 03/02/24 02:30 03/02/24 02:30 03/02/24 02:30 03/02/24 02:27 03/02/24 02:21 03/02/24 02:20 03/02/24 02:20 03/02/24 02:20 03/02/24 02:18 12/20/24 02:11 Non-rebreather 15 03/02/24 02:05 03/02/24 02:03 03/02/24 02:02 03/02/24 00:38 03/02/24 00:35 03/02/24 00:34 Room Air 03/02/24 00:17 Room Air 03/02/24 00:17 Room Air Laboratory Results Laboratory Results WBC 9.40 K/ul (4.8-10.8) 03/02/24 00:59 RBC 4.41 M/uL (4.70-6.10) L 03/02/24 00:59 Hgb 14.1 g/dl (14.0-18.0) 03/02/24 00:59 Hct 40.7 % (42.0-52.0) L 03/02/24 00:59 MCV 92.3 fL (80.0-100.0) 03/02/24 00:59 MCH 32.0 pg (25.0-34.0) 03/02/24 00:59 MCHC 34.6 g/dL (32.0-36.0) 03/02/24 00:59 RDW Std Deviation 41.3 fL (36.4-46.3) 03/02/24 00:59 RDW Coeff of Keyla 12.2 % (11.5-14.5) 03/02/24 00:59 Plt Count 249 K/uL (130-400) 03/02/24 00:59 MPV 9.7 fL (9.4-12.4) 03/02/24 00:59 Immature Gran % (Auto) 0.2 % 03/02/24 00:59 Neut % (Auto) 75.3 % 03/02/24 00:59 Lymph % (Auto) 16.4 % 03/02/24 00:59 [place] % (Auto) 7.6 % 03/02/24 00:59 Eos % (Auto) 0.2 % 03/02/24 00:59 Baso % (Auto) 0.3 % 03/02/24 00:59 Neut # (Auto) 7.08 K/uL (1.40-6.50) H 03/02/24 00:59 Lymph # (Auto) 1.54 K/uL (1.20-3.40) 03/02/24 00:59 [place] # (Auto) 0.71 K/uL (0.11-0.59) H 03/02/24 00:59 Eos # (Auto) 0.02 K/uL (0.00-0.50) 03/02/24 00:59 Baso # (Auto) 0.03 K/uL (0.00-0.20) 03/02/24 00:59 Immature Gran # (Auto) 0.02 K/uL (0.01-0.20) 03/02/24 00:59 PT 10.5 Seconds (9.0-12.0) 03/02/24 00:59 INR 1.0 (0.9-1.1) 03/02/24 00:59 APTT 28 Seconds (21-31) 03/02/24 00:59 PTT Ratio 1.0 03/02/24 00:59 Activ Coag Time Kaolin 302 SECONDS (94-140) H 03/02/24 03:43 Sodium 138 mmol/L (136-145) 03/02/24 00:59 Potassium 3.7 mmol/L (3.5-5.1) 03/02/24 00:59 Chloride 100 mmol/L (98-107) 03/02/24 00:59 Carbon Dioxide 31 mmol/L (21-32) 03/02/24 00:59 Anion Gap 7 (3-11) 03/02/24 00:59 BUN 9 mg/dl (6-23) 03/02/24 00:59 Creatinine 0.93 mg/dl (0.6-1.4) 03/02/24 00:59 Est Cr Clr Drug Dosing 95.7 ml/min 03/02/24 00:59 eGFR 105.79 03/02/24 00:59 BUN/Creatinine Ratio 9.7 (10-20) L 03/02/24 00:59 Glucose 120 mg/dl (70-99(Fasting)) H 03/02/24 00:59 Calcium 9.0 mg/dl (8.6-10.3) 03/02/24 00:59 Magnesium 1.8 mg/dl (1.7-2.4) 03/02/24 00:59 Total Bilirubin 0.4 mg/dl (0.2-1.0) 03/02/24 00:59 AST 27 U/L (13-39) 03/02/24 00:59 ALT 30 U/L (7-52) 03/02/24 00:59 Alkaline Phosphatase 113 U/L (34-104) H 03/02/24 00:59 Troponin I High Sens 306.4 pg/ml (0-20) H* D 03/02/24 02:50 Total Protein 7.1 gm/dl (6.0-8.3) 03/02/24 00:59 Albumin 3.9 gm/dl (3.4-5.0) 03/02/24 00:59 Globulin 3.2 gm/dl (2.5-4.0) 03/02/24 00:59 Albumin/Globulin Ratio 1.2 (0.9-2) 03/02/24 00:59 Lipase 13 U/L (11-82) 03/02/24 00:59 Urine Color Yellow 03/02/24 00:54 Urine Appearance Clear (Clear) 03/02/24 00:54 Urine pH 6.0 (4.5-7.5) 03/02/24 00:54 Ur Specific Bryan 1.007 (1.000-1.030) 03/02/24 00:54 Urine Protein Negative (Negative) 03/02/24 00:54 Urine Glucose (UA) Negative (Negative) 03/02/24 00:54 Urine Ketones Negative (Negative) 03/02/24 00:54 Urine Blood Trace (Negative) H 03/02/24 00:54 Urine Nitrite Negative (Negative) 03/02/24 00:54 Urine Bilirubin Negative (Negative) 03/02/24 00:54 Urine Urobilinogen Negative (Negative) 03/02/24 00:54 Ur Leukocyte Esterase Negative (Negative) 03/02/24 00:54 Urine WBC (Auto) 0-5 /hpf (0-5) 03/02/24 00:54 Urine RBC (Auto) 0-2 /hpf (0-2) 03/02/24 00:54 U Hyaline Cast (Auto) 0-2 /lpf (0-2) 03/02/24 00:54 U Epithel Cells (Auto) 0-2 /hpf (0-2) 03/02/24 00:54 Urine Bacteria (Auto) None Seen (None Seen) 03/02/24 00:54 Urine Opiates Screen Neg (Neg) 03/02/24 00:54 Ur Methadone, Qual Pos (Neg) H 03/02/24 00:54 Urine Fentanyl Screen Neg (Neg) 03/02/24 00:54 Urine Barbiturates Neg (Neg) 03/02/24 00:54 Ur Phencyclidine (PCP) Neg (Neg) 03/02/24 00:54 U Amphetamin/Meth Scrn Neg (Neg) 03/02/24 00:54 MDMA (Ecstasy) Screen Neg (Neg) 03/02/24 00:54 U Benzodiazepines Scrn Neg (Neg) 03/02/24 00:54 Ur Cocaine Metabolite Neg (Neg) 03/02/24 00:54 U Marijuana (THC) Screen Pos (Neg) H 03/02/24 00:54 Adenovirus (PCR) Not Detected (NotDetected) 03/02/24 01:03 B. pertussis DNA (PCR) Not Detected (NotDetected) 03/02/24 01:03 B.parapertussis DNA PCR Not Detected (NotDetected) 03/02/24 01:03 C. pneumoniae DNA (PCR) Not Detected (NotDetected) 03/02/24 01:03 Coronavirus OC43 (PCR) Not Detected (NotDetected) 03/02/24 01:03 Coronavirus HKU1 (PCR) Not Detected (NotDetected) 03/02/24 01:03 Coronavirus 229E (PCR) Not Detected (NotDetected) 03/02/24 01:03 SARS-CoV-2 (PCR) Not Detected (NotDetected) 03/02/24 01:03 Coronavirus NL63 (PCR) Not Detected (NotDetected) 03/02/24 01:03 Human Metapneumovir PCR Not Detected (NotDetected) 03/02/24 01:03 Influenza Type A (PCR) Not Detected (NotDetected) 03/02/24 01:03 Influenza Type B (PCR) Not Detected (NotDetected) 03/02/24 01:03 M. pneumoniae (PCR) Not Detected (NotDetected) 03/02/24 01:03 Parainfluenza 1 (PCR) Not Detected (NotDetected) 03/02/24 01:03 Parainfluenza 2 (PCR) Not Detected (NotDetected) 03/02/24 01:03 Parainfluenza 3 (PCR) Not Detected (NotDetected) 03/02/24 01:03 Parainfluenza 4 (PCR) Not Detected (NotDetected) 03/02/24 01:03 RSV (PCR) Not Detected (NotDetected) 03/02/24 01:03 Entero/Rhino (PCR) Not Detected (NotDetected) 03/02/24 01:03 Impressions Chest X-Ray 03/02/24 00:34 EXAM: XR chest 1V portable CLINICAL HISTORY: CHEST PAIN. TECHNIQUE: X-ray image of the chest is obtained in AP portable projection. COMPARISON: No prior studies are available for comparison. FINDINGS: Pulmonary Parenchyma: Chest leads are seen Lungs are clear bilaterally. No evidence of consolidation, collapse, or focal opacities. No pulmonary nodules are identified. Bilateral pleural thickening seen No evidence of pleural effusion. Heart and Mediastinum: Heart size and shape are normal. No mediastinal widening or masses. No hilar or mediastinal lymphadenopathy. Both jonelle appear prominent likely due to vascular congestion Bony Thorax: Bony thorax appears intact without fractures or deformities. Soft Tissues: Soft tissues overlying the chest wall are unremarkable. IMPRESSION: 1. Prominent both jonelle likely due to vascular congestion. Follow-up is advised 2. Bilateral apical pleural thickening 3. No evidence of active pulmonary infection Electronically signed by Ashlee Marti 03-02-2024 01:29 AM Code Status & VTE Plan VTE Prophylaxis Plan VTE Prophylaxis will be ordered: Yes PG Care Time/CCT Total # of Minutes Spent Total Time Spent with Patient: Total time spent is greater than 50% in coordination of care (as documented) at patient's floor/unit and/or counseling patient: Coding Level of Care Code 60217 INT INP/OBS CARE 3/75MIN Diagnoses CAD (coronary artery disease) I25.10 Admitted to intensive care unit Z78.9 HLD (hyperlipidemia) E78.5 GERD (gastroesophageal reflux disease) K21.9 Depression F32.9 HTN (hypertension) I10 Intravenous drug abuse in remission F19.11 Cardiac arrest I46.9
--- NOTE | 2024-03-02 03:11 | Cardiology Consultation ---
Date of Consultation March 02, 2024 Assessment & Plan (1) ACS (acute coronary syndrome): Presentation consistent high risk ACS complicated by polymorphic VT arrest. Recommend proceeding with emergent cardiac catheterization and likely primary PCI. No apparent contraindications to procedure. Discussed risks, benefits, alternatives of procedure with patient and they are willing to proceed. Given IV heparin in the ED. Further recommendations pending findings of coronary angiography. History of Present Illness History of Present Illness 43-year-old man here with acute chest pain seen post VT arrest requiring defibrillation x 1 in the ED with new dynamic ST changes. Patient with no real prior cardiac history. Does report intermittent chest pain for the last year. Was previously admitted to [facility] 06/2023 due to chest pain. Lexiscan SPECT at that time negative for ischemia EF 60%. Cardiac risk factors include hypertension, dyslipidemia, Tobacco use and family history of vascular disease. Other medical issues include history of prior IV drug abuse in remission. 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 Also with GERD, depression.. Chest pain began approximately 2230, approximately 4 hours prior to presentation. Pain similar to what he had previously but persistent. Presenting ECG showed ST depression in 2, V3 through V6. Initial HS TropI 100. Later in ED had polymorphic VT and cardiac arrest requiring CPR and defibrillation x 1. After ROSC had pronounced ST depressions in 2, 3, aVF as well as V3 through V6 and new elevation in aVL, V1, V2 and aVR. Heart alert activated. On arrival patient chest pain-free, hemodynamically stable. Had received heparin, potassium and was electrically stable. Allergies Allergy/AdvReac Type Severity Reaction Status Date / Time atorvastatin AdvReac Mild Unverified 12/20/23 08:04 Home Medications Medication Instructions Recorded Confirmed Type Medical marijuana inhalation 03/30/22 12/20/23 History methadone 10 mg/mL oral 90 mg PO DAILY 03/30/22 12/20/23 History concentrate (Methadone Intensol) gabapentin 800 mg tablet 800 mg PO TID #90 tabs 03/22/23 12/20/23 Rx atenolol 25 mg tablet 25 mg PO DAILY #90 tabs 04/04/23 12/20/23 Rx pravastatin 20 mg tablet 20 mg PO DAILY #90 tabs 06/20/23 12/20/23 Rx lisinopril 10 mg tablet 10 mg PO DAILY #90 tabs 08/25/23 12/20/23 Rx omeprazole 20 mg capsule,delayed 20 mg PO DAILY #90 caps 12/14/23 12/20/23 Rx release Patient History Medical History Vitamin deficiency Septic olecranon bursitis of left elbow Abscess of tendon sheath of left forearm Surgical History Status post open reduction and internal fixation (ORIF) of fracture Family History Father Lung cancer Mother Hypertension Denies family history of Ovarian cancer Prostate cancer Myocardial infarction Breast cancer Colorectal cancer Social History Smoking Status: Current every day smoker Tobacco Type: E-cigarettes / Vaping Age Started Using Tobacco: 14; packs per day: 1; Cigarettes Per Day: currently vaping; Second Hand Exposure: Yes; Do You Dip or Chew Tobacco: No; Hx Alcohol Use: No Hx Substance Use: Yes (medical marijuana card) Prescribed Medications: Marijuana Preferred Language: Japanese Visual Impairment: No Limitations Hearing Ability: Normal Beliefs That Will Affect Care: None marital status: Single Current Living Situation: Family Current Living Situation Comment: lives with sister and brother current occupational status: 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 How many Children do You have: 0 Feels Safe at Home: Yes Childhood Exposure to Second-Hand Smoke: Yes Diet: regular Diet Comment: regular caffeine: Yes (rarely) during the past year weight has: increased > 10 lbs Dental Care, Regularly: No Physical Activity Frequency: 1-2 Times per Week Physical Activity Frequency Comment: walking Seatbelt Use: sometimes Sunscreen Use: Yes Review of Systems Review of Systems: Not obtained in the setting of emergent situation Physical Exam Physical Exam: General: Comfortable, alert HEENT: Sclerae anicteric Lungs: Clear anteriorly Cardiac: Regular rate and rhythm, no murmurs. Vascular: No radial pulse on right. 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 Abdomen: Soft, nontender Extremities: Well perfused, no peripheral edema Neuro: Nonfocal Psych: Alert oriented Results & Data Vital Signs (Past 12 Hours) Vital Signs Temp Pulse Pulse Resp BP BP Pulse Ox 03/02/24 02:31 89 20 115/77 98 03/02/24 02:30 115/77 03/02/24 02:30 115/77 03/02/24 02:30 115/77 03/02/24 02:27 95 H 13 100 03/02/24 02:21 97 H 16 100 03/02/24 02:20 103/70 03/02/24 02:20 103/70 03/02/24 02:20 103/70 03/02/24 02:18 94 H 12 100 03/02/24 02:11 92 H 127/84 100 03/02/24 02:05 77 03/02/24 02:03 267 H 36 H 87 L 03/02/24 02:02 267 H 03/02/24 00:38 84 03/02/24 00:35 148/91 H 03/02/24 00:34 98 03/02/24 00:17 03/02/24 00:17 98.1 F 75 14 148/91 H 97 O2 Del Method O2 Flow Rate 03/02/24 02:31 Non-rebreather 13 03/02/24 02:30 03/02/24 02:30 03/02/24 02:30 03/02/24 02:27 03/02/24 02:21 03/02/24 02:20 03/02/24 02:20 03/02/24 02:20 03/02/24 02:18 03/02/24 02:11 Non-rebreather 15 03/02/24 02:05 03/02/24 02:03 03/02/24 02:02 03/02/24 00:38 03/02/24 00:35 03/02/24 00:34 Room Air 03/02/24 00:17 Room Air 03/02/24 00:17 Room Air PG Care Time/CCT Total # of Minutes Spent Total Time Spent with Patient: Total time spent is greater than 50% in coordination of care (as documented) at patient's floor/unit and/or counseling patient: Coding Level of Care Code 77129 INT INP/OBS CARE 2/55MIN Diagnoses ACS (acute coronary syndrome) I24.9
[2024-03-02 03:28] LABS: Troponin I High Sensitivity 306.4 pg/ml (0-20)
[2024-03-02] MEDS: 0.2 MICRON FILTER SET 1 EACH IV STA (03:49)
[2024-03-02] MEDS: AMIODARONE / D5W 360 MG/200 ML BAG IV ONE (03:50)
[2024-03-02] MEDS: AMIODARONE / D5W 150 MG/100 ML BAG IV STA (03:50)
[2024-03-02] MEDS: NITROGLYCERIN/D5W 100MCG/ML 20ML SYR ONE (03:51)
[2024-03-02] MEDS: niCARdipine 2,000 MCG/20 ML SYR ONE (03:51)
[2024-03-02] MEDS: HEPARIN (PORCINE) 1000 UNIT/ML 10 ML (CATH LAB USE ONLY) ONE (04:23)
[2024-03-02] MEDS: fentaNYL citrate PF 100 MCG/2 ML VIAL ONE (04:23)
[2024-03-02] MEDS: TICAGRELOR 90 MG TAB ONE (04:23)
[2024-03-02] MEDS: MIDAZOLAM HCL 1 MG/ML 2ML VIAL ONE (04:24)
[2024-03-02] MEDS: ONDANSETRON INJ 2 MG/ML 2 ML VIAL ONE (04:24)
[2024-03-02] MEDS: Heparin IV Adult Wt-Based Standard w/ INITIAL Bolus Protocol IV STA (04:25)
[2024-03-02] MEDS: NOREPINEPHRINE/D5W 4 MG/250 ML IV ONE (04:25)
--- NOTE | 2024-03-02 04:32 | Emergency Department Note ---
ED Visit Note I was consulted by the Advanced Practice Provider. I personally made/approved the management plan and take responsibility for the patient management. I performed a substantive portion of the visit. This includes the aspects of: Personally seeing the patient -MDM -I independently interpreted the following studies: Portable chest x-ray-no or new acute pulmonary findings. I was called to the patient's room emergently by nursing staff as the patient had gone into a cardiac dysrhythmia. Upon arriving the patient's room he was noted to be in ventricular tachycardia( Possibly torsades.) Initially, the patient was still breathing and somewhat responsive. Nursing staff placed the patient on the code cart hooker laster and defibrillator pads. During this process, the patient stopped breathing. The patient was defibrillated at 200 J. Chest compressions were initiated and bag valve ventilations were initiated. After approximately 1 minute, patient began to breathe on his own again and began to wake up. It was noted there was an organized rhythm on the monitor. Chest compressions were stopped and the patient was noted to be in a normal sinus rhythm. Carotid pulses were present. With the possibility of torsades, the patient was ordered to have 2 g of IV magnesium. A repeat twelve-lead EKG was ordered. Blake Jaime PA-C will contact cardiology immediately. I spoke with the patient. He was alert. I oriented him. I explained to him what had just occurred. I offered to contact someone for him. He declined. Blood pressure was obtained and was stable. I discussed the case with Dr. Hernández, the family court counsellor, and the critical care KAVITA. .
--- NOTE | 2024-03-02 04:42 | Post Anesthesia Assessment ---
Date of Service March 02, 2024 Post Sedation Assessment Vital Signs Temp Pulse Pulse Resp BP BP Pulse Ox 03/02/24 02:31 89 20 115/77 98 03/02/24 02:30 115/77 03/02/24 02:30 115/77 03/02/24 02:30 115/77 03/02/24 02:27 95 H 13 100 03/02/24 02:21 97 H 16 100 03/02/24 02:20 103/70 03/02/24 02:20 103/70 03/02/24 02:20 103/70 03/02/24 02:18 94 H 12 100 03/02/24 02:11 92 H 127/84 100 03/02/24 02:05 77 03/02/24 02:03 267 H 36 H 87 L 03/02/24 02:02 267 H 03/02/24 00:38 84 03/02/24 00:35 148/91 H 03/02/24 00:34 98 03/02/24 00:17 03/02/24 00:17 98.1 F 75 14 148/91 H 97 O2 Del Method O2 Flow Rate 03/02/24 02:31 Non-rebreather 13 03/02/24 02:30 03/02/24 02:30 03/02/24 02:30 03/02/24 02:27 03/02/24 02:21 03/02/24 02:20 03/02/24 02:20 03/02/24 02:20 03/02/24 02:18 03/02/24 02:11 Non-rebreather 15 03/02/24 02:05 03/02/24 02:03 03/02/24 02:02 03/02/24 00:38 03/02/24 00:35 03/02/24 00:34 Room Air 03/02/24 00:17 Room Air 03/02/24 00:17 Room Air Recovery Score Activity: Moves 4 extremities Respiration: Deep Breath/Cough Circulation: +/-20% PreAnes Value Consciousness: Fully Awake Oxygen Saturation: O2 needed for >90% Discharge Sedation Level of Care: Fast Track Phase II Post Sedation Plan On clinical assessment, the patient appears to have tolerated the sedation without complications. Patient is recovering as anticipated. Patient will continue to be monitored by nursing and may be discharged when sedation discharge criteria are met per below protocol. Upon Completions of procedure up to 15 minutes continue every 5 minute vital signs and the P.A.R. score; then discharge to a Phase I or Fast Track to Phase II per the following guidelines: * Discharge Patient to appropriate Phase II area if PAR is 8 or greater or return to pre- procedure baseline. The post - procedure orders will be as directed. * If PAR score is less than 8 or not return to pre-procedure baseline then patient will follow Phase I monitoring till PAR is reached for Phase II. The Phase I may be done in procedure room or may call to secure a Phase I area. * If naloxone or flumazenil are used for reversal, hold in Phase I for continued monitoring from when last reversal dose was given for a minimum of 60 minutes or longer pending the nurse and/or physician discretion of patient condition before discharge to Phase II. Please call the Sedation Physician to re-evaluate and complete post-note for discharge to Phase II area. Do NOT discharge from procedure sedation or Phase 1 until post- sedation evaluation note is complete by procedure /sedation MD Sedation Discharge Instructions to be given to the patient at discharge to home.
--- NOTE | 2024-03-02 04:58 | Critical Care Consultation ---
Date of Consultation March 02, 2024 Assessment & Plan (1) ACS (acute coronary syndrome): (2) GERD (gastroesophageal reflux disease): (3) Depression: (4) HTN (hypertension): (5) HLD (hyperlipidemia): (6) CAD (coronary artery disease): Plan Reason Critically Ill: 43 YOM presented for evaluation of chest pain, complicated by ventricular arrest requring CPR and defibrilation 200j x1 with return of ROSC, taken to outside laborer where he received 2 SHARDA to LAD and CIRC. Neuro - Hx of IV drug dependance, Tobacco dependance, anxiety/depression, neropathy CAM ICU: NEGATIVE - Continue Methadone for hx of IV drug abuse- patient reports ~3 yeas sobriety - consider nicotene patch if needed- will need smoking cessation education - Continue gabapentin - Patient was awake and conversant post arrest and is without focal deficits noted at this time Cardiac - STEMI/ACS, S/p SHARDA to LAD and CIRC, Ventricular cardiac arrest, HLD, HTN - Patient was ventricular cardiac arrest in setting of STEMI- with ROSC- likely related to ischemia/injury which should stabilize following PCI - continue amiodarone infusion- after initial bolus and infusion- defer continuation of amiodarone to cardiology - Trend troponin until PEAK - ECG with any chest pain or electrical changes - DAPT therapy initiated by cardiology- ASA and Brilinta - PREM/ARB- continue lisinopril- ECHO in am to eval cardiac function - BB- Metoprolol initiated by cardiology as hemodynamics permit - Dayna intensity statin initiated by cardiology - atorvastatin 80mg/dl - Further GDMT pending ECHO, HGB A1C - Smoking cessation as above will be imperative Respiratory - current everyday smoker, hx of solitary lung nodule - smoker with early emphysematous appearance noted on CT scan 04/05 - lung nodule noted on same CT scan from 2022 and reported as stable since 2011- 4mm reported GI - GERD - continue PPI - Advance diet as tolerated RENAL/LYTES - No acute needs - ICU electrolyte protocol- attempt to keep K ~ 4.0 and MG ~2.0 - NO acute needs ENDO - NO acute needs - follow glucose levels goal < 180mg/dl - TSH pending HEME - NO acute needs ID - No concern for infection at this time LINES/IV ACCESS - PIV x2 ultrasound guided, 1 IO left leg Continue use of these lines- once proven stable electrically and hemodynamically can discontinue IO DVT PROPHYLAXIS -SCDS, ambulation, ASA and Brilinta DISPO: ICU until proven stable hemodynamically and electrically I have personally spent 48 minutes of critical care time in the direct management of this patient. This is a life/limb threatening event. This includes time spent evaluating patient, direct bedside care, chart review, placing or ders, interpretation of diagnostic studies, discussion with consultants, patient, and family members, as well as other required patient management activities. This time is exclusive of all separately billable procedures, and teaching time and separate from and in addition to any other critical care service time. Thank you for allowing us to participate in the care of this patient. Please refer to my attending physician's documentation for any further recommendations. Supervising Physician Co-Signing Physician Notes Patient seen and examined. EMR reviewed. Discussed with critical care KAVITA overnight as well as with bedside critical care nurse and on multidisciplinary rounds. Patient's morning he is awake and alert. He is conversant. He is having pain at his IO site but otherwise doing reasonably well. No significant nausea or vomiting and he has an appetite. Wants to get up out of bed. He is neurologica lly intact. He is not having any issues with numbness or tingling in his lower extremities. He denies fevers chills or night sweats. Will discontinue I/O catheter. Out of bed to chair as tolerated. Advancing diet. Follow-up on echocardiogram. Will need outpatient cardiac rehab. Defer decision regarding amiodarone to cardiology. Continue high intensity statin therapy as well as antiplatelet agents per interventional cardiology. Anticipate the patient should be able to transfer out of the ICU later today or tomorrow at the latest provided he does well. 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 Patient presented to the EMD today for evaluation of chest pain. Patient reports that the CP started around 2230 and was located in the center of his chest after eating some food and lying down. He reports the pain as constant. He has had this before and has been evaluated in 07/05 with normal lexiscan and ECHO at that time. This pain he did note was more intense and constant, he then called EMS and took 4 aspirin at home after calling EMS. He had CXR, ECG done and routine labs performed. He initially was noted with ST depressions and HsCTNI of 103. During his workup, he had a ventricular arrest that required CPR and 200J Defibrillation with return of ROSC. Was concern for Torsades by EMD Physician, for which he was given Magnesium 2 GM, post def ibrillation ECG was notable for ST elevation in aVF, aVR, V3-V6 and further ST depressions in II, III- outside laborer was activated via heart alert, he was loaded with heparin as well as Amiodarone bolus and infusion. He was taken to the outside laborer where he received SHARDA x2 to the CIRC and LAD, he had short course of LEVOPHED infusion. He arrives to the ICU chest pain free, awake. ECG done on arrival with improvement in the above. Right Femoral access site is intact with no strike through and no hematoma. Patient will remain in the ICU for continued antiarrhythmic administration, hemodynamic monitoring, and following symptomatology. Patient is FULL CODE. Allergies Allergy/AdvReac Type Severity Reaction Status Date / Time atorvastatin AdvReac Mild Unverified 12/20/23 08:04 Home Medications Medication Instructions Recorded Confirmed Type Medical marijuana inhalation 03/30/22 12/20/23 History methadone 10 mg/mL oral 90 mg PO DAILY 03/30/22 12/20/23 History concentrate (Methadone Intensol) gabapentin 800 mg tablet 800 mg PO TID #90 tabs 03/22/23 12/20/23 Rx atenolol 25 mg tablet 25 mg PO DAILY #90 tabs 04/04/23 12/20/23 Rx pravastatin 20 mg tablet 20 mg PO DAILY #90 tabs 06/20/23 12/20/23 Rx lisinopril 10 mg tablet 10 mg PO DAILY #90 tabs 08/25/23 12/20/23 Rx omeprazole 20 mg capsule,delayed 20 mg PO DAILY #90 caps 12/14/23 12/20/23 Rx release Patient History Medical History Vitamin D deficiency Intravenous drug abuse in remission Murmur Radial artery occlusion, right Solitary pulmonary nodule Phantom limb pain Vitamin deficiency Septic olecranon bursitis of left elbow Abscess of tendon sheath of left forearm Surgical History 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) Status post open reduction and internal fixation (ORIF) of fracture L femur Family History Father Lung cancer Mother Hypertension Denies family history of Ovarian cancer Prostate cancer Myocardial infarction Breast cancer Colorectal cancer Social History Smoking Status: Current every day smoker Tobacco Type: E-cigarettes / Vaping Age Started Using Tobacco: 14; packs per day: 1; Cigarettes Per Day: currently vaping; Second Hand Exposure: Yes; Do You Dip or Chew Tobacco: No; Hx Alcohol Use: No Hx Substance Use: Yes (medical marijuana card) Prescribed Medications: Marijuana Last Used Substance: Unknown Preferred Language: Liberian Communication Ability: Effective Visual Impairment: No Limitations Hearing Ability: Normal Manager Bilingual Required: No Beliefs That Will Affect Care: None marital status: Single Current Living Situation: Family Current Living Situation Comment: lives with sister and brother current occupational status: disabled current occupation: on SSI How many Children do You have: 0 Feels Safe at Home: Yes Childhood Exposure to Second-Hand Smoke: Yes Diet: regular Diet Comment: regular caffeine: Yes (rarely) during the past year weight has: increased > 10 lbs Dental Care, Regularly: No Physical Activity Frequency: 1-2 Times per Week Physical Activity Frequency Comment: walking Seatbelt Use: sometimes Sunscreen Use: Yes Assistive Devices: Denture - Upper and Glasses Review of Systems Review of Systems: REVIEW OF SYSTEMS: Constitutional: No fever, sweats or chills Eyes: No diplopia, no worsening or blurred vision + wears glasses ENT: normal hearing, no trouble swallowing Respiratory: No cough, sputum, dyspnea at rest or on exertion Cardiovascular: + chest pain, NO tightness or palpitations Abdomen: No pain, nausea, vomiting, diarrhea or constipation Musculoskeletal: + phantom limb pain, No joint pain, calf pain, swelling Neurologic: No weakness, numbness/tingling, or balance problems Psychiatric: + anxiety or depression Physical Exam Physical Exam: PHYSICAL EXAM: General: awake, alert, no apparent distress Head: Normocephalic, atraumatic ENT: PERRLA, EOMI, no pharyngeal exudate, mucous membranes moist Neuro: AAO x 3, speech clear and appropriate, strength intact bilaterally 5/5, sensation intact and equal all extremities, no pronator drift Chest: equal rise and fall of the chest, no accessory muscle use, no heaves or thrills, Clear to auscultation, on oxymask post procedure Cardiac: Regular rate and rhythm, telemetry reviewed- NSR, skin warm dry, pe ripheral pusles +2 no JVD, systolic murmur, no edema, right groin access site without hematoma, dressing CDI, GI: NABS x 4 quadrants, soft, nontender to palpation, no rebound, guarding or tenderness : Spontaneously voiding, no pain, Psych: Normal mood, calm, cooperative Skin: multiple areas of scratches and scabs, discoloration of nails, Results & Data Results & Data Vital Signs (Past 12 Hours) Vital Signs Temp Pulse Pulse Resp BP BP Pulse Ox 03/02/24 02:31 89 20 115/77 98 03/02/24 02:30 115/77 03/02/24 02:30 115/77 03/02/24 02:30 115/77 03/02/24 02:27 95 H 13 100 03/02/24 02:21 97 H 16 100 03/02/24 02:20 103/70 03/02/24 02:20 103/70 03/02/24 02:20 103/70 03/02/24 02:18 94 H 12 100 03/02/24 02:11 92 H 127/84 100 03/02/24 02:05 77 03/02/24 02:03 267 H 36 H 87 L 03/02/24 02:02 267 H 03/02/24 00:38 84 03/02/24 00:35 148/91 H 03/02/24 00:34 98 03/02/24 00:17 03/02/24 00:17 36.7 C 75 14 148/91 H 97 O2 Del Method O2 Flow Rate 03/02/24 02:31 Non-rebreather 13 03/02/24 02:30 03/02/24 02:30 03/02/24 02:30 03/02/24 02:27 03/02/24 02:21 03/02/24 02:20 03/02/24 02:20 03/02/24 02:20 03/02/24 02:18 03/02/24 02:11 Non-rebreather 15 03/02/24 02:05 03/02/24 02:03 03/02/24 02:02 03/02/24 00:38 03/02/24 00:35 03/02/24 00:34 Room Air 03/02/24 00:17 Room Air 03/02/24 00:17 Room Air Laboratory Results Abnormal lab results 03/02/24 03/02/24 03/02/24 Range/Units 00:54 00:59 02:50 RBC 4.41 L (4.70-6.10) M/uL Hct 40.7 L (42.0-52.0) % Neut # (Auto) 7.08 H (1.40-6.50) K/uL Grayson # (Auto) 0.71 H (0.11-0.59) K/uL Activ Coag Time Kaolin (94-140) SECONDS BUN/Creatinine Ratio 9.7 L (10-20) Glucose 120 H (70-99(Fasting)) mg/dl Alkaline Phosphatase 113 H (34-104) U/L Troponin I High Sens 103.6 H* 306.4 H* D (0-20) pg/ml Urine Blood Trace H (Negative) Ur Methadone, Qual Pos H (Neg) U Marijuana (THC) Screen Pos H (Neg) 03/02/24 Range/Units 03:43 RBC (4.70-6.10) M/uL Hct (42.0-52.0) % Neut # (Auto) (1.40-6.50) K/uL Grayson # (Auto) (0.11-0.59) K/uL Activ Coag Time Kaolin 302 H (94-140) SECONDS BUN/Creatinine Ratio (10-20) Glucose (70-99(Fasting)) mg/dl Alkaline Phosphatase (34-104) U/L Troponin I High Sens (0-20) pg/ml Urine Blood (Negative) Ur Methadone, Qual (Neg) U Marijuana (THC) Screen (Neg) Diagnostic Findings Chest X-Ray 03/02/24 00:34 EXAM: XR chest 1V portable CLINICAL HISTORY: CHEST PAIN. TECHNIQUE: X-ray image of the chest is obtained in AP portable projection. COMPARISON: No prior studies are available for comparison. FINDINGS: Pulmonary Parenchyma: Chest leads are seen Lungs are clear bilaterally. No evidence of consolidation, collapse, or focal opacities. No pulmonary nodules are identified. Bilateral pleural thickening seen No evidence of pleural effusion. Heart and Mediastinum: Heart size and shape are normal. No mediastinal widening or masses. No hilar or mediastinal lymphadenopathy. Both jonelle appear prominent likely due to vascular congestion Bony Thorax: Bony thorax appears intact without fractures or deformities. Soft Tissues: Soft tissues overlying the chest wall are unremarkable. IMPRESSION: 1. Prominent both jonelle likely due to vascular congestion. Follow-up is advised 2. Bilateral apical pleural thickening 3. No evidence of active pulmonary infection Electronically signed by Ashlee Marti 03-02-2024 01:29 AM Medications Administered Amiodarone HCl/Dextrose (Nexterone / D5w) 360 mg in 200 mls @ 33.333 mls/hr IV ONE ONE Stop: 03/02/24 08:39 Last Admin: 03/02/24 03:50 Dose: 1 mg/min, 33.3 mls/hr Documented By: SU Co-signed By: CMB Discontinued Medications Fentanyl Citrate (Fentanyl Citrate Pf 100 Mcg/2 Ml Vial) Confirm Administered Dose 100 mcg .ROUTE .STK-MED ONE Stop: 03/02/24 02:43 Last Increment: 03/02/24 04:23 Dose: 25 mcg Documented By: SU Heparin Sodium (Porcine) (Heparin Sod (Porcine) 1000 Unit/Ml) 5,000 units IV NOW ONE Stop: 03/02/24 02:45 Last Admin: 03/02/24 02:51 Dose: 3,000 units Documented By: NASREEN Co-signed By: LEONA Heparin Sodium (Porcine) (Heparin (Porcine) 1000 Unit/Ml 10 Ml (Insurance Inspector Use Only)) Confirm Administered Dose 10,000 units .ROUTE .STK-MED ONE Stop: 03/02/24 02:43 Last Admin: 03/02/24 04:23 Dose: 5,000 units Documented By: SU Heparin Sodium/Dextrose (Heparin Iv Adult Wt-Based Standard W/ Initial Bolus Protocol) 1 each IV NOW STA; Protocol Stop: 03/02/24 02:30 Last Admin: 03/02/24 04:25 Dose: 1 each Documented By: SU Heparin Sodium/Sodium Chloride (Heparin In Nss Infusion 1000 Unit/500 Ml (2 U/Ml) Bag) Confirm Administered Dose 3,000 units IV .STK-MED ONE Stop: 03/02/24 02:43 Last Admin: 03/02/24 03:51 Dose: 3,000 units Documented By: SU Potassium Chloride (K Kenny / Wtr) 10 meq in 100 mls @ 100 mls/hr IV ONE ONE Stop: 03/02/24 03:14 Last Admin: 03/02/24 02:24 Dose: Not Given Documented By: LEONA Magnesium Sulfate/Dextrose (Magnesium Sulfate / D5w) 1 gm in 100 mls @ 100 mls/hr IV NOW STA Stop: 03/02/24 03:15 Last Admin: 03/02/24 02:24 Dose: Not Given Documented By: LEONA Heparin Sodium/Dextrose (Heparin Sodium/Dextrose) 25,000 units in 500 mls @ 23 mls/hr IV .[id number] [facility]; Protocol Stop: 04/01/24 02:44 Last Admin: 03/02/24 02:52 Dose: 1,150 units/hr, 23 mls/hr Documented By: NASREEN Co-signed By: LEONA N/A (0.2 Micron Filter Set 17" W/Clave,Non-Dehp) 0 mls @ 0.333 mls/hr IV ONE STA Stop: 03/02/24 02:30 Last Admin: 03/02/24 03:49 Dose: 0.333 mls/hr Documented By: SU Amiodarone HCl/Dextrose (Nexterone / D5w) 150 mg in 100 mls @ 600 mls/hr IV NOW STA Stop: 03/02/24 02:38 Last Admin: 03/02/24 03:50 Dose: 600 mls/hr Documented By: SU Co-signed By: GIANNI Magnesium Sulfate/Dextrose (Magnesium Sulfate 1gm / D5w Bag) Confirm Administered Dose 2 gm IV .STK-MED ONE Stop: 03/02/24 02:07 Last Admin: 03/02/24 02:10 Dose: 2 gm Documented By: LEONA Midazolam HCl (Midazolam Hcl 1 Mg/Ml 2ml Vial) Confirm Administered Dose 2 mg .ROUTE .STK-MED ONE Stop: 03/02/24 02:43 Last Increment: 03/02/24 04:24 Dose: 1 mg Documented By: SU Nicardipine HCl (Nicardipine 2,000 Mcg/20 Ml Syr) Confirm Administered Dose 2,000 mcg .ROUTE .STK-MED ONE Stop: 03/02/24 02:43 Last Admin: 03/02/24 03:51 Dose: 2,000 mcg Documented By: SANGEETA Nitroglycerin (Nitroglycerin 2% Ointment 30gm Tube) 1 inch EXT NOW ONE Stop: 03/02/24 02:01 Last Admin: 03/02/24 02:24 Dose: Not Given Documented By: LEONA Nitroglycerin/Dextrose (Nitroglycerin/D5w 100mcg/Ml 20ml Syr) Confirm Administered Dose 2,000 mcg .ROUTE .STK-MED ONE Stop: 03/02/24 02:43 Last Admin: 03/02/24 03:51 Dose: 2,000 mcg Documented By: SANGEETA Norepinephrine Bitartrate (Norepinephrine/D5w 4 Mg/250 Ml) Confirm Administered Dose 4 mg IV .STK-MED ONE Stop: 03/02/24 03:19 Last Admin: 03/02/24 04:25 Dose: 4 mg Documented By: SU Co-signed By: GIANNI Ondansetron HCl (Ondansetron Inj 2 Mg/Ml 2 Ml Vial) Confirm Administered Dose 4 mg .ROUTE .STK-MED ONE Stop: 03/02/24 02:53 Last Admin: 03/02/24 04:24 Dose: Not Given Documented By: SU Potassium Chloride (Potassium Chloride 10 Meq / 100ml Wtr) Confirm Administered Dose 10 meq IV .STK-MED ONE Stop: 03/02/24 02:15 Last Admin: 03/02/24 02:16 Dose: 10 meq Documented By: LEONA Ticagrelor (Ticagrelor 90 Mg Tab) Confirm Administered Dose 180 mg .ROUTE .STK- MED ONE Stop: 03/02/24 04:19 Last Admin: 03/02/24 04:23 Dose: 180 mg Documented By: SU ECG Additional Comments: Normal sinus rhythm Septal infarct, age undetermined Abnormal ECG When compared with ECG [id number] 02:07,(unconfirmed) Septal infarctis nowPresent ST no longer depressed inInferior leads ST no longer depressed inAnterolateral leads T wave inversion no longer evident inInferior leads QT has lengthened Coding Level of Care Code 56009 IN/OBS CONSULT LVL 4,60M Diagnoses ACS (acute coronary syndrome) I24.9 GERD (gastroesophageal reflux disease) K21.9 Depression F32.9 HTN (hypertension) I10 HLD (hyperlipidemia) E78.5 CAD (coronary artery disease) I25.10
--- NOTE | 2024-03-02 05:08 | Cardiac Catheterization ---
[facility] Data: Sweep Molder Cardiac Status Clinical evaluation leading to the procedure CAD Presenation: STEMI Anginal Classification: CCS IV Diagnostic Physicians Name: Raj Blas MD Closure Device Recommendations: PCI without planned CABG Cardiac Cath Procedure Full Procedure Date March 02, 2024 Pre-Procedure Diagnosis Pre-Procedure Diagnosis: STEMI and Arrhythmia (VT arrest) AUC Score AUC Score: 7 Post-Procedure Diagnosis Post-Procedure Diagnosis: Severe CAD, Successful PCI and Normal Intracardiac Pressures Procedure(s) Performed Procedure(s) Performed: Coronary Angiography, Left Heart Cath, Drug Eluting Stent, Ultrasound Guided Vascular Access, IVUS and Femoral Artery Angiography Warehouse Representative Raj Blas MD Skin Piler(s) Arnulfo Estimated Blood Loss Estimated Blood Loss: 25 Medication(s) Medication(s): Fentanyl, Heparin, Lidocaine 1%, Norepinephrine and Versed Medication(s): Ticagrelor Summary of Findings Indication: High risk ACS. In hospital VT cardiac arrest post ROSC after defibrillation x 1. Access: 6 Fr right MAILING JOGGER under ultrasound guidance Catheters: EBU 3.5 guide, diagnostic JR4 Findings: LM -small caliber, 20-30% distal disease LAD -small caliber, 98% acute ostial/proximal, mid LAD with 30% stenosis remainder of vessel without significant disease and wraps around apex with HERMINIA II flow. Small D1 with 70% ostial stenosis Circumflex -medium caliber, 70% ostial/proximal disease. Medium OM1 with 40 to 50% proximal disease. Remainder of small AV groove circumflex without significant disease and terminates in small left PLB. RCA -medium caliber, dominant, 30% proximal disease, 30-40% mid segment disease, distal vessel and small RPDA without disease. LVEDP -13 -- PCI -- Antithrombotic therapy: Heparin, ticagrelor Procedure: Left main cannulated with EBU 3.5 guide Pre-procedure flow HERMINIA 2 [employer] Hyperion Consultant 50 wire passed across lesion into distal LAD [place] wire placed into circumflex/OM1 Ostial/proximal LAD predilated with 2.5 compliant balloon [employer] IVUS catheter placed into mid LAD. Pullback revealed severe proximal LAD disease/thrombus extending back to LAD/circumflex bifurcation, minimally calcified. IVUS placed to circumflex and pullback revealed moderate proximal disease extending back to left main. Proximal small left main without significant disease. Dilated LAD lesion stented with 2.5 x 18 mm Xience drug-eluting stent Post stent implantation noted to have worsening stenosis in ostial circumflex. 2.5 compliant balloon placed into circumflex and LAD stent post-dilated with 2.5 noncompliant balloon. Later kissing balloon inflation at LAD in-stent and ostial circumflex. Second SHARDA (2.25 x 23 Xience) placed to circumflex ostium into OM 1 Kissing balloon inflation with 2.5 balloon in LAD and with stent balloon and circumflex Repeat IVUS and LAD, circumflex showed well-expanded, well apposed stents with no apparent edge complications. LAD stent extending back into distal left main. Post procedure patient chest pain free, HERMINIA 3 flow, stents well expanded with minimal residual stenosis and no apparent cardiac complications. Arterial Closure: Angio-Seal Summary: 1. Complex multivessel coronary artery disease Acute 98% ostial LAD -70% ostial circumflex 2. Normal intracardiac filling pressure 3. Successful PCI of ostial LAD/circumflex bifurcation with 2 drug-eluting stents (2.5 x 18 LAD, 2.25 x 23 LCx/OM1 Xience). Recommendations: To ICU for continued monitoring Loaded with ticagrelor 180 mg in Sweep Molder. Possibly transition to prasugrel on discharge Continue amiodarone infusion overnight Trend troponin until peak, echocardiogram in morning Titrate up beta-jonatan, PREM as BP allows Continue dual-antiplatelet therapy for at least 1 year, likely extended P2Y12 with complex stenting Continue statin, and ASCVD risk factor modification Consult cardiac Rehab Hemodynamics Rest Ao:: 88/58/73 Final Ao: 108/71/88 LV: 104/13 Recommendations Recommendations: PCI without planned CABG Radiation Exposure (mGy) 2797 Contrast (mls) 125 Anesthesia Moderate 0598-7177 Procedural Complication(s) None Disposition ICU I attest to the content of the Intraoperative Record and any orders documented therein. Any exceptions are noted below. [facility] Card Cath Procedure Codes Cardiac Catheterization Procedure 1: Cardiovascular Cath Procedures: 61063 Coronaries and LHC (+/-LV) Therapeutic Services & Ancillary Procedure 1: Cardiovascular Tx and Anc Procedures: 73610 IV Ultrasound (Coronary or Graft) Procedure 2: Cardiovascular Tx and Anc Procedures: 82197 IV Ultrasound Ea addl vessel Moderate Sedation Procedure 1: Sedation/Anesthesia: 01880 Mod Sedation by the same physician;Init15 Min Child Age 5 & Up Procedure 2: Sedation/Anesthesia: 52731 Mod Sedation by the same physician; Ea [id number] Minutes Stenting Procedure 1: Cardiovascular Stent Procedures: 84281 Perc transluminal revascularization of acute sub/total occl, aMI PG Care Time/CCT Total # of Minutes Spent Total Time Spent with Patient: Total time spent is greater than 50% in coordination of care (as documented) at patient's floor/unit and/or counseling patient:
[2024-03-02] MEDS: OPTIRAY 350 ONE (05:35)
--- NOTE | 2024-03-02 06:03 | Billing Data ---
Date of Service March 02, 2024 Coding Level of Care Code 09481 CRITICAL CARE 1ST 30-74M Time Spent (min) 55 Comment 55 minutes of critical care time
[2024-03-02 07:07] LABS: Estimated Average Glucose 123 mg/dl; Hemoglobin A1C 5.9 % (4.5-5.6)
[2024-03-02 07:17] LABS: Chol HDL Ratio 5.4 (0-5); Cholesterol 152 mg/dl (0-200); HDL Cholesterol 28 mg/dl; Thyroid Stimulating Hormone 1.321 uIu/ml (0.300-4.500); Triglycerides 605 mg/dl (0-150)
[2024-03-02] MEDS: ICU Protocol for HYPERglycemia SCH (08:08)
[2024-03-02] MEDS: METOPROLOL TARTRATE 25 MG TAB PO SCH ×2 (08:10→21:00)
[2024-03-02] MEDS: ASPIRIN 81 MG ECTAB PO SCH (08:11)
[2024-03-02] MEDS: ATORVASTATIN 40 MG TAB PO SCH (08:11)
[2024-03-02] MEDS: GABAPENTIN 800 MG TAB PO SCH (08:12)
[2024-03-02] MEDS: lisinopril 5 MG TAB PO SCH (08:12)
[2024-03-02] MEDS: PANTOprazole 40 MG TAB PO SCH (08:12)
[2024-03-02] MEDS ORDERED: PANTOprazole 40 MG TAB PO SCH (09:00)
[2024-03-02] MEDS ORDERED: METHADONE 10 MG/ML PO SCH (09:00)
[2024-03-02] MEDS ORDERED: ROSUVASTATIN CALCIUM 20 MG TAB PO SCH (09:00)
[2024-03-02] MEDS ORDERED: METOPROLOL TARTRATE 25 MG TAB PO SCH (09:00)
[2024-03-02] MEDS: AMIODARONE 200 MG TAB PO SCH (10:26)
[2024-03-02] MEDS: AMIODARONE / D5W 360 MG/200 ML BAG IV SCH (10:28)
[2024-03-02] MEDS: PATIENT'S OWN CONTROLLED MED 1 PO SCH (11:14)
[2024-03-02] MEDS: METHADONE ORAL SOLN 2 MG/ML PO SCH (11:14)
--- NOTE | 2024-03-02 15:56 | XCELERA ---
[id number] \\[facility]\ISCV_PDF_Reports\[id number]}___[id number].pdf
--- NOTE | 2024-03-02 16:45 | Cardiology Progress Note ---
Date of Service March 02, 2024 Assessment & Plan (1) CAD (coronary artery disease): Plan: High risk ACS, 90% ostial LAD, 70% proximal LCxpost 2 SHARDA (V stenting) Minimal nonculprit disease 2. Cardiac arrestpolymorphic VT in the setting of MS, minimal residual ventricular ectopy on Amio 3. Preserved LV functionLVEF 50%, apical wall motion abnormality 4. Mild MR 5. Hypertension 6. Dyslipidemia 7. 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 Chest pain-free, hemodynamically stable. No additional ventricular ectopy for last 8 hours No apparent access site complications. Trend troponin until peak Continue DAPT with aspirin, ticagrelorwill transition to prasugrel tomorrow Can discontinue amiodarone Uptitrate metoprolol to 25 mg twice daily, lisinopril back to 10 mg daily Continue current atorvastatin Check direct LDL in a.m. Will repeat limited echo prior to discharge with Definity before discharge to rule out LV thrombus From a cardiac standpoint okay with transfer to telemetry today. Appreciate ICU and hospital medicine care. Admission and Anticipated Discharge Date Admission Date: March 02, 2024 Subjective Seen this afternoon. Feeling well. No residual chest pain. Telemetry reviewedbrief NSVT last this morning around 7:50 AM Review of Systems Review of Systems: All systems reviewed & are unremarkable except as noted in HPI & below Physical Exam Physical Exam: General: Comfortable HEENT: Sclerae anicteric Lungs: Clear to auscultation bilaterally Cardiac: Regular rate and rhythm, no murmurs. Vascular: Nonpalpable right radial. 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 Abdomen: Soft, nontender Extremities: Well perfused, no lower extremity edema. 2+ DP pulses bilaterally Neuro: Nonfocal Psych: Alert orient x3, normal affect and mood Results & Data Vital Signs (Past 12 Hours) Vital Signs Temp Pulse Pulse Pulse Resp BP BP 03/02/24 11:36 73 20 03/02/24 11:31 129/81 03/02/24 11:21 68 20 03/02/24 11:15 70 13 03/02/24 11:06 78 18 03/02/24 11:00 151/70 H 03/02/24 11:00 151/70 H 03/02/24 11:00 98.2 F 03/02/24 10:57 67 12 03/02/24 10:51 66 18 03/02/24 10:39 67 12 03/02/24 10:30 143/68 H 03/02/24 10:09 66 15 03/02/24 10:00 147/69 H 03/02/24 10:00 147/69 H 03/02/24 10:00 147/69 H 03/02/24 10:00 147/69 H 03/02/24 10:00 147/69 H 03/02/24 10:00 147/69 H 03/02/24 10:00 147/69 H 03/02/24 10:00 147/69 H 03/02/24 10:00 70 14 03/02/24 09:42 78 19 03/02/24 09:30 136/57 L 03/02/24 09:27 76 21 03/02/24 09:18 77 16 03/02/24 09:00 131/69 03/02/24 09:00 131/69 03/02/24 09:00 70 13 03/02/24 08:48 69 12 03/02/24 08:36 67 12 03/02/24 08:30 123/69 03/02/24 08:15 75 19 03/02/24 07:45 73 18 03/02/24 07:30 150/64 H 03/02/24 07:30 78 19 03/02/24 07:15 75 18 03/02/24 06:30 70 138/55 L 03/02/24 06:00 97.9 F 74 15 136/62 03/02/24 05:42 77 17 122/49 L 03/02/24 05:24 82 03/02/24 05:15 89 14 03/02/24 05:00 130/76 03/02/24 05:00 97.9 F 130/76 03/02/24 04:54 87 15 03/02/24 04:50 97.9 F 77 16 130/76 03/02/24 04:45 Pulse Ox O2 Del Method O2 Flow Rate 03/02/24 11:36 98 Room Air 03/02/24 11:31 03/02/24 11:21 98 03/02/24 11:15 03/02/24 11:06 03/02/24 11:00 03/02/24 11:00 03/02/24 11:00 03/02/24 10:57 03/02/24 10:51 03/02/24 10:39 03/02/24 10:30 03/02/24 10:09 03/02/24 10:00 03/02/24 10:00 03/02/24 10:00 03/02/24 10:00 03/02/24 10:00 03/02/24 10:00 03/02/24 10:00 03/02/24 10:00 03/02/24 10:00 03/02/24 09:42 03/02/24 09:30 03/02/24 09:27 03/02/24 09:18 03/02/24 09:00 03/02/24 09:00 03/02/24 09:00 03/02/24 08:48 100 03/02/24 08:36 99 Room Air 03/02/24 08:30 03/02/24 08:15 98 03/02/24 07:45 98 03/02/24 07:30 03/02/24 07:30 94 03/02/24 07:15 98 03/02/24 06:30 99 Room Air 03/02/24 06:00 99 Oxymask 4 03/02/24 05:42 97 Oxymask 4 03/02/24 05:24 03/02/24 05:15 100 03/02/24 05:00 03/02/24 05:00 98 Oxymask 4 03/02/24 04:54 97 Oxymask 4 03/02/24 04:50 100 Oxymask 8 03/02/24 04:45 Oxymask 4 PG Care Time/CCT Total # of Minutes Spent Total Time Spent with Patient: Total time spent is greater than 50% in coordination of care (as documented) at patient's floor/unit and/or counseling patient: Coding Level of Care Code None Diagnoses CAD (coronary artery disease) I25.10
[2024-03-02] MEDS: TICAGRELOR 90 MG TAB PO SCH (21:00)
--- NOTE | 2024-03-02 21:24 | Electrocardiogram Report ---
Test Reason : Blood Pressure : */* mmHG Vent. Rate : 88 BPM Atrial Rate : 88 BPM P-R Int : 162 ms QRS Dur : 86 ms QT Int : 412 ms P-R-T Axes : 65 77 70 degrees QTcB Int : 498 ms Normal sinus rhythm ST depression, consider subendocardial injury Nonspecific T wave abnormality Prolonged QT Abnormal ECG When compared with ECG of 28-Apr-2018 08:15, Non-specific change in ST segment in Inferior leads ST depression has replaced ST elevation in Anterior leads Inverted T waves have replaced nonspecific T wave abnormality in Inferior leads T wave inversion now evident in Lateral leads Confirmed by Esequiel Meléndez ([id number]) on 03/02/2024 9:23:22 PM Referred By: REFERRED SELF Confirmed By: Esequiel Meléndez
--- NOTE | 2024-03-02 21:25 | Electrocardiogram Report ---
Test Reason : Blood Pressure : */* mmHG Vent. Rate : 81 BPM Atrial Rate : 81 BPM P-R Int : 174 ms QRS Dur : 88 ms QT Int : 400 ms P-R-T Axes : 72 70 82 degrees QTcB Int : 465 ms Normal sinus rhythm ST depression, consider subendocardial injury Abnormal ECG When compared with ECG of 02-Mar-2024 00:35, T wave inversion no longer evident in Inferior leads T wave inversion no longer evident in Lateral leads Confirmed by Esequiel Meléndez ([id number]) on 03/02/2024 9:24:40 PM Referred By: REFERRED SELF Confirmed By: Esequiel Meléndez
--- NOTE | 2024-03-02 21:26 | Electrocardiogram Report ---
Test Reason : Blood Pressure : */* mmHG Vent. Rate : 95 BPM Atrial Rate : 95 BPM P-R Int : 158 ms QRS Dur : 84 ms QT Int : 310 ms P-R-T Axes : 68 67 -21 degrees QTcB Int : 389 ms Normal sinus rhythm Marked ST abnormality, possible inferior subendocardial injury ST elevation, consider injury pattern Abnormal ECG When compared with ECG of 02-Mar-2024 01:54, ST now depressed in Inferior leads ST now depressed in Lateral leads T wave inversion now evident in Inferior leads ST elevation now present in Septal leads Confirmed by Esequiel Meléndez ([id number]) on 03/02/2024 9:26:06 PM Referred By: REFERRED SELF Confirmed By: Esequiel Meléndez
--- NOTE | 2024-03-02 21:27 | Electrocardiogram Report ---
Test Reason : Blood Pressure : */* mmHG Vent. Rate : 78 BPM Atrial Rate : 78 BPM P-R Int : 166 ms QRS Dur : 92 ms QT Int : 398 ms P-R-T Axes : 57 66 77 degrees QTcB Int : 453 ms Normal sinus rhythm Nonspecific ST abnormality Abnormal ECG When compared with ECG of 02-Mar-2024 02:07, ST no longer depressed in Inferior leads ST no longer depressed in Anterior leads T wave inversion no longer evident in Inferior leads Confirmed by Esequiel Meléndez ([id number]) on 03/02/2024 9:27:17 PM Referred By: REFERRED SELF Confirmed By: Esequiel Meléndez
[2024-03-03 05:55] LABS: Hematocrit (blood only) 41.5 % (42.0-52.0); Hemoglobin 15.2 g/dl (14.0-18.0); Mean Corpuscular Hemoglobin 32.8 pg (25.0-34.0); Mean Corpuscular Hgb Conc 36.6 g/dL (32.0-36.0); Mean Corpuscular Volume 89.4 fL (80.0-100.0); Mean Platelet Volume 9.9 fL (9.4-12.4); Platelet Count 261 K/uL (130-400); RDW Standard Deviation 39.1 fL (36.4-46.3); Red Blood Count 4.64 M/uL (4.70-6.10); White Blood Count 11.98 K/ul (4.8-10.8)
[2024-03-03 06:09] LABS: Basophils # (auto) 0.02 K/uL (0.00-0.20); Basophils % (auto) 0.2 %; Eosinophils # (auto) 0.01 K/uL (0.00-0.50); Eosinophils % (auto) 0.1 %; Immature Granulocytes % (auto) 0.9 %; Lymphocytes # (auto) 1.63 K/uL (1.20-3.40); Lymphocytes % (auto) 14.3 %; Monocytes # (auto) 0.83 K/uL (0.11-0.59); Monocytes % (auto) 7.3 %; Neutrophils # (auto) 8.79 K/uL (1.40-6.50); Neutrophils % (auto) 77.2 %
--- NOTE | 2024-03-03 07:08 | Critical Care Progress Note ---
Date of Service March 03, 2024 Assessment & Plan (1) Cardiac arrest: (2) ACS (acute coronary syndrome): Plan Impression: 43-year-old male with cardiac arrest due to acute coronary syndrome status post drug-eluting stent. Recommendations: 1. Acute coronary syndrome: Chest pain-free now. Continue metoprolol, lisinopril, and high-dose statin. Currently on dual antiplatelet therapy. Will need outpatient cardiac rehab 2. Cardiac arrest secondary to #1: Amiodarone discontinued. Electrolyte replacement. 3. History of drug abuse in remission. Continue baseline methadone. Patient's critical care issues have resolved. He can be dismissed from the intensive care unit. Ultimate disposition per cardiology and primary service. Critical care services will sign off. Admission and Anticipated Discharge Date Admission Date: March 02, 2024 Subjective Patient seen and examined. EMR reviewed. The patient is doing well clinically. He is having some residual musculoskeletal pain from CPR but no chest pain that could be interpreted as an anginal equivalent. He is not having any shortness of breath. He is been up to the chair. No shortness of breath with physical activity. Tolerating a diet. No nausea or vomiting. He overall feels like he is recovering well. Review of Systems Review of Systems: All systems reviewed & are unremarkable except as noted in Subjective Physical Exam Constitutional: WD/WN, vitals as above Neck: trachea midline, no thyromegaly Respiratory: normal respiratory effort, lungs clear to auscultation Cardiovascular: RRR, no murmur, no edema Gastrointestinal (Abdomen): normal bowel sounds, soft, nontender, no hepatosplenomegaly Musculoskeletal: Extremities: extremities normal to inspection Skin: no rashes, warm and dry Neurologic: Nonfocal exam Lymphatic: no cervical lymphadenopathy Results & Data Results & Data Vital Signs (Past 12 Hours) Vital Signs Pulse Resp BP 03/03/24 04:00 118/56 L 03/03/24 04:00 118/56 L 03/03/24 03:57 57 L 15 03/03/24 03:03 57 L 12 03/03/24 03:00 138/62 03/03/24 03:00 138/62 03/03/24 02:57 57 L 14 03/03/24 02:06 56 L 11 L 03/03/24 01:00 68 12 03/03/24 01:00 116/63 03/03/24 01:00 116/63 03/03/24 00:03 76 22 03/03/24 00:00 159/63 H 03/03/24 00:00 159/63 H 03/03/24 00:00 159/63 H 03/03/24 00:00 159/63 H 03/03/24 00:00 159/63 H 03/02/24 23:51 80 18 03/02/24 23:12 60 15 03/02/24 23:00 105/54 L 03/02/24 23:00 105/54 L 03/02/24 22:54 61 10 L 03/02/24 22:46 103/55 L 03/02/24 22:42 64 15 03/02/24 22:00 60 16 03/02/24 21:06 120/71 03/02/24 21:06 120/71 03/02/24 21:03 69 16 03/02/24 21:00 77 15 03/02/24 20:06 68 14 Critical Care Results & Data Vital Signs (Past 12 Hours) Vital Signs Pulse Resp BP 03/03/24 04:00 118/56 L 03/03/24 04:00 118/56 L 03/03/24 03:57 57 L 15 03/03/24 03:03 57 L 12 03/03/24 03:00 138/62 03/03/24 03:00 138/62 03/03/24 02:57 57 L 14 03/03/24 02:06 56 L 11 L 03/03/24 01:00 68 12 03/03/24 01:00 116/63 03/03/24 01:00 116/63 03/03/24 00:03 76 22 03/03/24 00:00 159/63 H 03/03/24 00:00 159/63 H 03/03/24 00:00 159/63 H 03/03/24 00:00 159/63 H 03/03/24 00:00 159/63 H 03/02/24 23:51 80 18 03/02/24 23:12 60 15 03/02/24 23:00 105/54 L 03/02/24 23:00 105/54 L 03/02/24 22:54 61 10 L 03/02/24 22:46 103/55 L 03/02/24 22:42 64 15 03/02/24 22:00 60 16 03/02/24 21:06 120/71 03/02/24 21:06 120/71 03/02/24 21:03 69 16 03/02/24 21:00 77 15 03/02/24 20:06 68 14 Lab & Micro Results (Past 24 Hours) RBC 4.64 M/uL (4.70-6.10) L 03/03/24 WBC 11.98 K/ul (4.8-10.8) H 03/03/24 Hgb 15.2 g/dl (14.0-18.0) 03/03/24 Hct 41.5 % (42.0-52.0) L 03/03/24 MCV 89.4 fL (80.0-100.0) 03/03/24 MCH 32.8 pg (25.0-34.0) 03/03/24 MCHC 36.6 g/dL (32.0-36.0) H 03/03/24 RDW Standard Deviation 39.1 fL (36.4-46.3) 03/03/24 RDW Coefficient of Variation 12.0 % (11.5-14.5) 03/03/24 Plt Count 261 K/uL (130-400) 03/03/24 MPV 9.9 fL (9.4-12.4) 03/03/24 Neutrophils (%) (Auto) 77.2 % 03/03/24 Lymphocytes (%) (Auto) 14.3 % 03/03/24 Monocytes # (Auto) 0.83 K/uL (0.11-0.59) H 03/03/24 Eosinophils # (Auto) 0.01 K/uL (0.00-0.50) 03/03/24 Immature Granulocyte % (Auto) 0.9 % 03/03/24 Neutrophils # (Auto) 8.79 K/uL (1.40-6.50) H 03/03/24 Lymphocytes # (Auto) 1.63 K/uL (1.20-3.40) 03/03/24 Monocytes # (Auto) 0.83 K/uL (0.11-0.59) H 03/03/24 Eosinophils # (Auto) 0.01 K/uL (0.00-0.50) 03/03/24 Basophils # (Auto) 0.02 K/uL (0.00-0.20) 03/03/24 Immature Granulocyte # (Auto) 0.10 K/uL (0.01-0.20) 4 Phosphorus Level Pending 03/03/24 No Data to Display I & O Totals 24 Hours 03/02/24 03/03/24 03/04/24 06:59 06:59 06:59 Intake Total 100 / 100 320.0 / 320.0 Output Total 650 / 650 1400 / 1400 Balance -550 / -550 -1080.0 / -1080.0 Cumulative 03/02/24 00:17 thru 03/02/24 22:00 Intake Total 420.0 Output Total 2050 Balance -1630.0 RT Ventilator Mngmt (Last Documented) Ventilator Ordered Settings Respiratory Rate 15 03/03/24 03:57 Ventilator - PT Measurements Respiratory Rate 15 Coding Level of Care Code 67037 SUB INP/OBS CARE 2/35MIN Diagnoses Cardiac arrest I46.9 ACS (acute coronary syndrome) I24.9
[2024-03-03 07:15] LABS: Albumin Level 4.4 gm/dl (3.4-5.0); Anion Gap 12 (3-11); BUN Creatinine Ratio 12.5 (10-20); Blood Urea Nitrogen 11 mg/dl (6-23); Carbon Dioxide 27 mmol/L (21-32); Chloride 98 mmol/L (98-107); Chol HDL Ratio 4.8 (0-5); Cholesterol 196 mg/dl (0-200); Creatinine Clr Calc Pharmacy 96.7 ml/min; Glucose 105 mg/dl (70-99(Fasting)); HDL Cholesterol 41 mg/dl; LDL Cholesterol Direct 111 mg/dl; Magnesium 2.2 mg/dl (1.7-2.4); Phosphorus 3.1 mg/dl (2.5-4.9); Sodium 137 mmol/L (136-145); Triglycerides 401 mg/dl (0-150); Troponin I High Sensitivity 8711.7 pg/ml (0-20)
[2024-03-03] MEDS: lisinopril 10 MG TAB PO SCH (08:16)
[2024-03-03] MEDS: PRASugrel TAB 10 MG TAB PO SCH (08:17)
[2024-03-03] MEDS: bisacodyL 10 MG SUPP PR STA (10:30)
--- NOTE | 2024-03-03 13:03 | Hospitalist Progress Note ---
Date of Service March 03, 2024 Assessment & Plan (1) CAD (coronary artery disease): (2) Admitted to intensive care unit: (3) HLD (hyperlipidemia): (4) GERD (gastroesophageal reflux disease): (5) Depression: (6) HTN (hypertension): (7) Intravenous drug abuse in remission: (8) Cardiac arrest: Plan Cardiac arrest- Initially presented with chest pain, with elevated troponin of 103.6, Patient rapidly was found to be in ventricular tachycardia/likely torsades, received empiric magnesium IV, and was shocked with 200 J unsynchronized. Patient converted to normal sinus rhythm after about 1 minute of chest compressions. The patient was started on intravenous heparin bolus/drip, and amiodarone bolus/drip. 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 Blas. Change beta-jonatan from atenolol 25 mg daily to metoprolol tartrate 12.5 mg p.o. twice daily Continue aspirin 81 mg daily, Prasugrel, Atorvastatin, lisinopril Will need cardiac rehab Hyperlipidemia- Change pravastatin 20 mg to rosuvastatin 20 mg high-dose statin Check a fasting lipid panel History of IV drug abuse- On maintenance methadone, continue Old medical marijuana GERD- Change omeprazole to pantoprazole He will need cardiac rehab Admission and Anticipated Discharge Date Admission Date: March 02, 2024 Subjective patient seen and examined, denies any chest pain Review of Systems Review of Systems: All systems reviewed are negative, apart from the ones contained in the history. Physical Exam Physical Exam: The patient is awake, alert and oriented 3, well developed and well nourished, normocephalic and atraumatic, lying in bed and in no acute distress. HEENT--PERRL, EOMI, mucous membranes and oropharynx mildly dry Neck--supple. No JVD. No bruits. Thyroid normal, trachea midline, no adenopathy. Heart--normal S1 and S2. No murmurs, rubs or gallops. Lungs--clear bilaterally, no respiratory distress, no accessory muscle use. Abdomen--normal bowel sounds and soft. Extremities--no cyanosis or clubbing. No edema. Dermatologic--normal skin turgor, normal color, no abnormal lymph nodes, no rash. Neurologic--cranial nerves II through XII grossly intact. Rheumatologic--normal range of motion. Psychiatric--normal affect. Results & Data Results & Data Vital Signs (Past 12 Hours) Vital Signs Pulse Resp BP 03/03/24 07:00 109/61 03/03/24 07:00 62 12 03/03/24 06:01 154/78 H 03/03/24 06:00 66 14 03/03/24 04:00 118/56 L 03/03/24 04:00 118/56 L 03/03/24 03:57 57 L 15 03/03/24 03:03 57 L 12 03/03/24 03:00 138/62 03/03/24 03:00 138/62 03/03/24 02:57 57 L 14 03/03/24 02:06 56 L 11 L 03/03/24 01:00 68 12 03/03/24 01:00 116/63 03/03/24 01:00 116/63 PG Care Time/CCT Total # of Minutes Spent Total Time Spent with Patient: Total time spent is greater than 50% in coordination of care (as documented) at patient's floor/unit and/or counseling patient: Coding Level of Care Code 73615 SUB INP/OBS CARE 2/35MIN Diagnoses CAD (coronary artery disease) I25.10 Admitted to intensive care unit Z78.9 HLD (hyperlipidemia) E78.5 GERD (gastroesophageal reflux disease) K21.9 Depression F32.9 HTN (hypertension) I10 Intravenous drug abuse in remission F19.11 Cardiac arrest I46.9 Time Spent (min) 35
--- NOTE | 2024-03-03 13:11 | Cardiology Progress Note ---
Date of Service March 03, 2024 Assessment & Plan (1) CAD (coronary artery disease): Plan: -Presented as an acute coronary syndrome. -Polymorphic VT arrest in the setting of his acute event. -Stents placed in the ostial LAD and proximal LCx. -Left ventricular systolic function preserved. -Dual antiplatelet therapy for least 1 year (aspirin and prasugrel). -Continue metoprolol to tartrate, lisinopril, and atorvastatin. -Stable for transfer to telemetry. Admission and Anticipated Discharge Date Admission Date: March 02, 2024 Subjective The patient is resting comfortably in bed without complaints of chest pain or dyspnea. Physical Exam Physical Exam: In general this is a well-developed well-nourished white male in no acute distress. HEENT exam is negative. Neck reveals normal carotid upstrokes without bruits. Jugular venous pressure is flat at 90. There is no thyromegaly. Cardiovascular exam reveals a regular rhythm with distant heart sounds. No obvious murmurs. Lungs are clear without rales, rhonchi, or wheezes. Abdomen is soft without bruits. Extremities reveal intact right radial and right femoral arteries. There is no peripheral edema. Results & Data Vital Signs (Past 12 Hours) Vital Signs Pulse Resp BP 03/03/24 07:00 109/61 03/03/24 07:00 62 12 03/03/24 06:01 154/78 H 03/03/24 06:00 66 14 03/03/24 04:00 118/56 L 03/03/24 04:00 118/56 L 03/03/24 03:57 57 L 15 03/03/24 03:03 57 L 12 03/03/24 03:00 138/62 03/03/24 03:00 138/62 03/03/24 02:57 57 L 14 03/03/24 02:06 56 L 11 L Diagnostic Findings quality assurance monitor final is benign. PG Care Time/CCT Total # of Minutes Spent Total Time Spent with Patient: Total time spent is greater than 50% in coordination of care (as documented) at patient's floor/unit and/or counseling patient: Coding Level of Care Code 14386 SUB INP/OBS CARE 3/50MIN Diagnoses CAD (coronary artery disease) I25.10
[2024-03-04 07:13] LABS: Basophils # (auto) 0.03 K/uL (0.00-0.20); Basophils % (auto) 0.3 %; Eosinophils # (auto) 0.02 K/uL (0.00-0.50); Eosinophils % (auto) 0.2 %; Hematocrit (blood only) 45.5 % (42.0-52.0); Hemoglobin 16.2 g/dl (14.0-18.0); Immature Granulocytes # (auto) 0.03 K/uL (0.01-0.20); Immature Granulocytes % (auto) 0.3 %; Lymphocytes # (auto) 1.88 K/uL (1.20-3.40); Lymphocytes % (auto) 16.2 %; Mean Corpuscular Hemoglobin 32.3 pg (25.0-34.0); Mean Corpuscular Hgb Conc 35.6 g/dL (32.0-36.0); Mean Corpuscular Volume 90.6 fL (80.0-100.0); Monocytes # (auto) 0.78 K/uL (0.11-0.59); Monocytes % (auto) 6.7 %; Neutrophils # (auto) 8.83 K/uL (1.40-6.50); Neutrophils % (auto) 76.3 %; Platelet Count 318 K/uL (130-400); RDW Coefficient of Variation 11.9 % (11.5-14.5); RDW Standard Deviation 39.8 fL (36.4-46.3); Red Blood Count 5.02 M/uL (4.70-6.10); White Blood Count 11.57 K/ul (4.8-10.8)
[2024-03-04 07:31] LABS: Albumin Level 4.2 gm/dl (3.4-5.0); BUN Creatinine Ratio 19.5 (10-20); Calcium 9.9 mg/dl (8.6-10.3); Creatinine Clr Calc Pharmacy 94.8 ml/min; Magnesium 1.9 mg/dl (1.7-2.4); Phosphorus 2.8 mg/dl (2.5-4.9); Potassium 4.5 mmol/L (3.5-5.1)
[2024-03-04] MEDS: POLYETHYLENE (MIRALAX) 17 GM PACK PO SCH (08:40)
[2024-03-04] MEDS: PRASugrel TAB 10 MG TAB PO SCH (08:43)
--- NOTE | 2024-03-04 10:42 | Hospitalist Progress Note ---
Date of Service March 04, 2024 Assessment & Plan (1) CAD (coronary artery disease): (2) Admitted to intensive care unit: (3) HLD (hyperlipidemia): (4) GERD (gastroesophageal reflux disease): (5) Depression: (6) HTN (hypertension): (7) Intravenous drug abuse in remission: (8) Cardiac arrest: Plan Cardiac arrest- Initially presented with chest pain, with elevated troponin of 103.6, Patient rapidly was found to be in ventricular tachycardia/likely torsades, received empiric magnesium IV, and was shocked with 200 J unsynchronized. Patient converted to normal sinus rhythm after about 1 minute of chest compressions. The patient was started on intravenous heparin bolus/drip, and amiodarone bolus/drip. He was taken emergently to the cardiac Registered Massage Therapist as a heart alert 98% ostial LAD underwent successful stent placement, and a 70% ostial left circumflex underwent successful stent placement by Dr. Blas. Change beta-jonatan from atenolol 25 mg daily to metoprolol tartrate 12.5 mg p.o. twice daily Continue aspirin 81 mg daily, Prasugrel, Atorvastatin, lisinopril Will need cardiac rehab Hyperlipidemia- Change pravastatin 20 mg to rosuvastatin 20 mg high-dose statin Check a fasting lipid panel History of IV drug abuse- On maintenance methadone, continue Old medical marijuana GERD- Change omeprazole to pantoprazole He will need cardiac rehab Admission and Anticipated Discharge Date Admission Date: March 02, 2024 Subjective patient seen and examined, denies chest pain Review of Systems Review of Systems: All systems reviewed are negative, apart from the ones contained in the history. Physical Exam Physical Exam: The patient is awake, alert and oriented 3, well developed and well nourished, normocephalic and atraumatic, lying in bed and in no acute distress. HEENT--PERRL, EOMI, mucous membranes and oropharynx mildly dry Neck--supple. No JVD. No bruits. Thyroid normal, trachea midline, no adenopathy. Heart--normal S1 and S2. No murmurs, rubs or gallops. Lungs--clear bilaterally, no respiratory distress, no accessory muscle use. Abdomen--normal bowel sounds and soft. Extremities--no cyanosis or clubbing. No edema. Dermatologic--normal skin turgor, normal color, no abnormal lymph nodes, no rash. Neurologic--cranial nerves II through XII grossly intact. Rheumatologic--normal range of motion. Psychiatric--normal affect. Results & Data Results & Data Vital Signs (Past 12 Hours) Vital Signs Temp Pulse Pulse Resp BP Pulse Ox O2 Del Method 03/04/24 08:03 97.7 F 61 18 133/88 95 Room Air 03/04/24 07:58 64 03/04/24 03:27 98.1 F 75 17 104/69 95 Room Air 03/03/24 23:05 98.1 F 67 18 109/74 94 Room Air 03/03/24 23:03 62 PG Care Time/CCT Total # of Minutes Spent Total Time Spent with Patient: Total time spent is greater than 50% in coordination of care (as documented) at patient's floor/unit and/or counseling patient: Coding Level of Care Code 06578 SUB INP/OBS CARE 2/35MIN Diagnoses CAD (coronary artery disease) I25.10 Admitted to intensive care unit Z78.9 HLD (hyperlipidemia) E78.5 GERD (gastroesophageal reflux disease) K21.9 Depression F32.9 HTN (hypertension) I10 Intravenous drug abuse in remission F19.11 Cardiac arrest I46.9 Time Spent (min) 35
[2024-03-04] MEDS: NICOTINE 14 MG/24 HR PATCH TD SCH (12:47)
--- NOTE | 2024-03-04 13:13 | Electrocardiogram Report ---
Test Reason : Blood Pressure : */* mmHG Vent. Rate : 63 BPM Atrial Rate : 63 BPM P-R Int : 148 ms QRS Dur : 76 ms QT Int : 548 ms P-R-T Axes : 60 75 99 degrees QTcB Int : 560 ms Normal sinus rhythm Prolonged QT Abnormal ECG When compared with ECG of 02-Mar-2024 04:54, Significant changes have occurred Confirmed by Onesimo Kruger ([id number]) on 03/04/2024 1:13:10 PM Referred By: REFERRED SELF Confirmed By: Onesimo Kruger
[2024-03-05] MEDS: ACETAMINOPHEN 325 MG TAB PO PRN (02:26)
[2024-03-05 07:14] LABS: Basophils # (auto) 0.04 K/uL (0.00-0.20); Basophils % (auto) 0.3 %; Eosinophils # (auto) 0.03 K/uL (0.00-0.50); Eosinophils % (auto) 0.3 %; Hematocrit (blood only) 42.4 % (42.0-52.0); Immature Granulocytes # (auto) 0.04 K/uL (0.01-0.20); Immature Granulocytes % (auto) 0.3 %; Lymphocytes # (auto) 2.43 K/uL (1.20-3.40); Lymphocytes % (auto) 21.3 %; Mean Corpuscular Hemoglobin 31.5 pg (25.0-34.0); Mean Corpuscular Hgb Conc 35.4 g/dL (32.0-36.0); Mean Corpuscular Volume 89.1 fL (80.0-100.0); Monocytes # (auto) 0.86 K/uL (0.11-0.59); Monocytes % (auto) 7.5 %; Neutrophils # (auto) 8.03 K/uL (1.40-6.50); Neutrophils % (auto) 70.3 %; Platelet Count 341 K/uL (130-400); RDW Coefficient of Variation 11.9 % (11.5-14.5); RDW Standard Deviation 38.7 fL (36.4-46.3); Red Blood Count 4.76 M/uL (4.70-6.10); White Blood Count 11.43 K/ul (4.8-10.8)
[2024-03-05 07:37] LABS: Albumin Level 4.1 gm/dl (3.4-5.0); BUN Creatinine Ratio 23.6 (10-20); Calcium 9.8 mg/dl (8.6-10.3); Creatinine Clr Calc Pharmacy 92.7 ml/min; Magnesium 2.1 mg/dl (1.7-2.4); Phosphorus 3.6 mg/dl (2.5-4.9); Potassium 4.3 mmol/L (3.5-5.1)
[2024-03-05 08:15] VITALS: TEMP 98.1
--- NOTE | 2024-03-05 10:43 | Discharge Summary ---
Discharge Summary Date of Service March 05, 2024 Principal Dx & Hospital Course #1 = Principal Diagnosis (1) ACS (acute coronary syndrome): The patient underwent emergent left heart catheterization and subsequently had stenting of the LAD and circumflex. Atenolol has been switched to metoprolol. He is now on aspirin and prasugrel therapy along with a atorvastatin and lisinopril. Appreciate cardiology consultation and recommendations (2) Cardiac arrest: The patient developed ventricular tachycardia and fibrillation associated with acute coronary syndrome. He was successfully resuscitated. Telemetry while hospitalized (3) HLD (hyperlipidemia): He is on a atorvastatin therapy. Low-fat diet. Serial labs (4) GERD (gastroesophageal reflux disease): Treated while hospitalized with PPI therapy (5) HTN (hypertension): Stable. Continue current medical management (6) Intravenous drug abuse in remission: Supportive care Plan Home today, March 05. Avoid overexertion. Follow-up with PCP and merchandise associate as soon as possible. Admission HPI Per Admitting Provider The patient is a 43-year-old male with past medical history including current everyday vaping, hyperlipidemia, GERD, depression, hypertension, peripheral neuropathy, history of left upper lobe limb loss history of IVDA. The patient presented to the emergency department as noted above, underwent cardiac arrest as noted, and ROSC was obtained. Patient became alert, returned to normal sinus rhythm, and was then referred for evaluation for admission. Patient then became a heart alert, and was taken to the cardiac Radiotelephone Technical Operator urgently by Dr. Blas. He was found to have a 98% ostial LAD lesion, and a 70% ostial left circumflex lesion with placement of 2 stents Discharge Exam General-alert and oriented x3, no fever, no chills HEENT-head atraumatic and normocephalic, pupils equal and reactive to light, extraocular muscles intact Neck-no lymphadenopathy or thyromegaly, trachea midline Chest-clear to auscultation. 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 No peripheral lower extremity edema Neuro-cranial nerves II through XII intact, motor and sensory function within normal limits, strength symmetrical, no focal deficits Psych-normal affect, normal mood Discharge Plan Discharge Items Patient Disposition: Home - Self-Care Reason For Visit: CARDIAC ARREST Discharge Diagnosis: Acute coronary syndrome, cardiac arrest Activity: As commented below Activity Comment: Avoid overexertion Non-emergency contact: Primary Care Provider and Business Information Consultant Call non-emergency contact if: you have any medication questions and your symptoms worsen Follow-up/Referrals: Ailyn Perry DO [Primary Care Provider] - Diet: Regular and Heart Healthy Addtl Attending Provider Instructions: Take medications as directed. Prescriptions have been sent to [facility] pharmacy in [place]. See primary care provider and merchandise associate as soon as possible. Avoid overexertion Pending Studies at Discharge: No Stand-Alone Forms: My [facility] [employer], Smoking Cessation Medications and DC Order Prescriptions: New prasugrel 10 mg Tablet 10 mg PO QAM Qty: 30 0RF atorvastatin 40 mg Tablet 80 mg PO QAM Qty: 30 0RF metoprolol tartrate 25 mg Tablet 25 mg PO BID Qty: 60 0RF aspirin 81 mg Tablet,Delayed Release (Dr/Ec) 81 mg PO QAM Qty: 0 0RF Continued gabapentin 800 mg tablet 800 mg PO TID Qty: 90 11RF Rx Instructions: FILLED 02/13 30 DAY SUPPLY pravastatin 20 mg tablet 20 mg PO DAILY Qty: 90 2RF Rx Instructions: FILLED 12/14 90 DAY SUPPLY lisinopril 10 mg tablet 10 mg PO DAILY Qty: 90 2RF Rx Instructions: FILLED 02/17 90 DAY SUPPLY omeprazole 20 mg capsule,delayed release(DR/EC) 20 mg PO DAILY Qty: 90 1RF Rx Instructions: FILLED 12/13 90 DAY SUPPLY Medical marijuana 1 dose inhalation DIRECTED Rx Instructions: unable to verify methadone [Methadone Intensol] 10 mg/mL concentrate 90 mg PO UD Rx Instructions: 90 mg po daily. unable to verify medication Discontinued atenolol 25 mg tablet 25 mg PO DAILY Qty: 90 3RF Rx Instructions: FILLED 01/07 90 DAY SUPPLY Discharge Orders: Discharge Order (Routine); Ordered 03/05/24 Ordered By: Andrea Velez Admission Data Admit Date/Time: 03/02/24 03:05 Attending Provider: Andrea Velez Admit Provider: Chase Goldsmith Primary Care Provider: Ailyn Perry Other Providers: Chase Goldsmith; Blayne Ramirez Hospital Stay Data Consultations 03/02/24 02:28 ED Decision to Admit Stat 03/02/24 05:24 Consult Yeast Cake Cutter Routine Procedures Performed Operation Date: 03/02/24 02:30 Actual Procedures p Cineradiography w/Routine Exam - Raj Blas MD p Aspiration/PCI w/SHARDA for Stemi - Raj Blas MD Diagnostic Imagining Performed 03/02/24 02:41 CL Cath Imgs for PACS use only Stat 03/02/24 04:35 CL IVUS Coronary Single Vessel Stat Pending Results Patient Have Any Pending Studies at Discharge: No Discharge Instructions Given to Patient (Per Discharging Provider) Take medications as directed. Prescriptions have been sent to [facility] pharmacy in [place]. See primary care provider and merchandise associate as soon as possible. Avoid overexertion Total Time Total Time Spent Total Time Spent (In Minutes): 45 minutes Coding Level of Care Code 40459 INP/OBS DISCH >30 MIN Diagnoses ACS (acute coronary syndrome) I24.9 Cardiac arrest I46.9 HLD (hyperlipidemia) E78.5 GERD (gastroesophageal reflux disease) K21.9 HTN (hypertension) I10 Intravenous drug abuse in remission F19.11
[2024-03-05 10:44] VITALS: PULSE 61; RESP 18; O2SAT 92
--- NOTE | 2024-03-05 11:32 | Electrocardiogram Report ---
Test Reason : Blood Pressure : */* mmHG Vent. Rate : 59 BPM Atrial Rate : 59 BPM P-R Int : 142 ms QRS Dur : 84 ms QT Int : 534 ms P-R-T Axes : 63 72 91 degrees QTcB Int : 528 ms Sinus bradycardia T wave abnormality, consider anterolateral ischemia Prolonged QT Abnormal ECG Confirmed by Raj Coppola ([id number]) on 03/05/2024 11:31:53 AM Referred By: REFERRED SELF Confirmed By: Raj Coppola
[2024-03-05 12:18] VITALS: BP 101/67
[2024-03-05] MEDS ORDERED: PRASugrel TAB 10 MG TAB PO ONE (13:21)
[2024-03-05 14:57] LABS: Marijuana Quant, GCMS Urine 478 ng/mL (<5); Methadone, Ur Metabolite >10000 ng/mL (<100); Methadone, Ur Verification >10000 ng/mL (<100)
[2024-03-06] MEDS ORDERED: PRASugrel TAB 10 MG TAB PO SCH (09:00)
== END 2024-03-05 14:31 | disposition home or self-care (01) | DRG 321 ==
LOC: ED 00:29 → 1E 02:49 → SUATTDRO 03:05 → 2S 03-03 18:42